=== PATIENT | female | born 1970 | race African-American/Black ===

== ENCOUNTER 2016-03-14 04:23 | Inpatient (IN) | payer BC, OTHER ==
[~2016-03-14] VITALS: Ht 167.6 cm; Wt 96.2 kg
[~2016-03-14 04:23] MED LIST: ATARAX,VISTARIL25 MG PO; CALCIUM 250+D1 EACH PO; COMBIVENT IH; DAILY VALUE1 EACH PO; FLUOXETINE HCL20 MG PO; FLUOXETINE HCL40 MG PO; GLUCOSAMINE1000 MG PO; HYDROCODON-ACE1 EAC5 PO; K-DUR20 MEQ PO; LISINOPRIL PO; LISINOPRIL5 MG PO; LUNESTA3 MG PO; MOTRIN600 MG PO; NEBS; OMEGA 3-6-91200 MG PO; PROBIOTIC1 EAC1 PO; SOMA350 MG PO; TRAMADOL HCL50 MG PO; ULTRAM50 MG PO; XANAX1 MG PO; [UNRECOGNIZED DRUG - REMARK] PO
[2016-03-14 05:43] LABS: CHLORIDE 109 mEq/L (99-109)
[2016-03-14 05:44] LABS: SODIUM 137 mEq/L (136-147)
[2016-03-14 05:46] LABS: GLUCOSE 151 mg/dL (70-99)
[2016-03-14 05:47] LABS: ANION GAP 11 MEQ/L (2-14)
[2016-03-14 05:48] LABS: TOTAL BILIRUBIN 0.2 mg/dL (0.0-1.0)
[2016-03-14 05:49] LABS: ALKALINE PHOSPHATASE 127 IU/L (3-129); SERUM ETHYL ALCOHOL < 10 mg/dL
[2016-03-14 05:50] LABS: GFR ESTIMATE (CALCULATED) > 59 mL/min/
[2016-03-14 05:51] LABS: UREA NITROGEN (BUN) 9 mg/dL (9-23)
[2016-03-14 05:55] LABS: HEMATOCRIT 30.2 % (36.0-46.0); MCHC 32.8 G/DL (30.0-36.0); MCV 82.5 FL (83-99); MEAN PLAT.VOLUME 9.1 uM^3 (9.5-12.4); PLATELET COUNT 331 K/uL (156-360); RBC DIS.WIDTH-CV 19.1 % (11.8-14.6); RBC DIS.WIDTH-SD 52.1 % (39-53); RED BLOOD COUNT 3.66 M/uL (3.80-5.20); TROP-I INTERPRETATION NEGATIVE; TROPONIN-I < 0.01 ng/mL (0.0-0.30)
[2016-03-14 05:56] LABS: EOSINOPHIL (%) 2.2 % (0-5); EOSINOPHIL COUNT 0.1 K/uL (0-0.3); LYMPHOCYTE COUNT 2.5 K/uL (1.0-2.8); MONOCYTE (%) 10.9 % (3-12); MONOCYTE COUNT 0.6 K/uL (0-0.8); NEUTROPHIL (%) 36.9 % (45-76); NEUTROPHIL COUNT 1.9 K/uL (1.8-6.4)
[2016-03-14 07:48] LABS: ADD MIUA? NO; BILIRUBIN NEGATIVE; BLOOD NEGATIVE; COLOR YELLOW ((YELLOW)); GLUCOSE (STRIP) NEGATIVE; KETONES NEGATIVE; LEUKOCYTES NEGATIVE; NITRITE NEGATIVE; PROTEIN (STRIP) NEGATIVE; SPECIFIC GRAVITY 1.013 (1.000-1.030); UCUL ADDED? NO; UROBILINOGEN 0.2 MG/DL (0.2-1.0)
[2016-03-14] MEDS ORDERED: LISINOPRIL40 MG PO (07:56)
[2016-03-14 07:57] LABS: ADD MEDTOX COMMENT Y; AMPHETAMINE NEGATIVE (500 ng/mL); BARBITURATES NEGATIVE (200 ng/mL); BENZODIAZEPINES PRESUMPTIVE POSITIVE (150 ng/mL); COCAINE NEGATIVE (150 ng/mL); INTERNAL CONTROLS VALID? YES; METHADONE NEGATIVE (200 ng/mL); METHAMPHETAMINE NEGATIVE (500 ng/mL); OPIATES (MORPHINE) NEGATIVE (100 ng/mL); OXYCODONE NEGATIVE (100 ng/mL); PHENCYCLIDINE NEGATIVE (25 ng/mL); PROPOXYPHENE NEGATIVE (300 ng/mL); THC CANNABINOIDS NEGATIVE (50 ng/mL); TRICYCLIC ANTIDEPRESSANTS NEGATIVE (300 ng/mL)
[2016-03-14] MEDS ORDERED: NEXIUM40 MG PO (07:57)
[2016-03-14] MEDS ORDERED: OMEGA 3-6-9 11200 MG PO (07:58)
[2016-03-14] MEDS ORDERED: SINGULAIR10 MG PO (07:59)
[2016-03-14] MEDS ORDERED: PROZAC20 MG PO (08:00)
[2016-03-14] MEDS ORDERED: NORVASC5 MG PO (08:01)
[2016-03-14] MEDS ORDERED: ENDOCET 5-3251 EACH PO (08:01)
[2016-03-14] MEDS ORDERED: CRESTOR10 MG PO (08:02)
[2016-03-14] MEDS ORDERED: AMBIEN10 MG PO (08:03)
[2016-03-14] MEDS ORDERED: BUPROPION HCL150 M2 PO (08:04)
[2016-03-14] MEDS ORDERED: OXAYDO5 MG PO (08:05)
[2016-03-14] MEDS ORDERED: EFFEXOR75 MG PO (08:05)
[2016-03-14 08:41] LABS: BENZODIAZEPINES, URINE SCREEN POSITIVE (200 ng/mL)
[2016-03-14 16:30] VITALS: BP 133/79
[2016-03-14 18:45] LABS: ANION GAP 8 MEQ/L (2-14); CHLORIDE 111 MEQ/L (99-109); CREATINE KINASE 156 IU/L (1-294); GFR ESTIMATE (CALCULATED) > 59 mL/min/; MAGNESIUM 1.8 mg/dl (1.3-2.7); SAMPLE HEMOLYSIS CHECK 0; SAMPLE ICTERIC CHECK 0; SAMPLE LIPEMIA CHECK 0; SODIUM 140 MEQ/L (136-147); UREA NITROGEN (BUN) 7 mg/dL (9-23)
[2016-03-14 18:50] LABS: GLUCOSE 107 mg/dL (70-99); POTASSIUM 4.5 MEQ/L (3.7-5.4)
[2016-03-14 20:00] VITALS: BP 137/75
[2016-03-15] VITALS: BP 147/40
[2016-03-15 06:34] VITALS: BP 129/75
[2016-03-15 07:23] LABS: EOSINOPHIL (%) 3.5 % (0-5); EOSINOPHIL COUNT 0.2 K/uL (0-0.3); HEMATOCRIT 34.2 % (36.0-46.0); IMMATURE GRANULOCYTE (%) 0.2 % (0.0-0.7); LYMPHOCYTE COUNT 2.1 K/uL (1.0-2.8); MCH 27.2 PG (29.0-34.0); MCHC 31.3 G/DL (30.0-36.0); MCV 86.8 FL (83-99); MEAN PLAT.VOLUME 9.3 uM^3 (9.5-12.4); MONOCYTE (%) 10.4 % (3-12); MONOCYTE COUNT 0.5 K/uL (0-0.8); NEUTROPHIL (%) 44.8 % (45-76); NEUTROPHIL COUNT 2.3 K/uL (1.8-6.4); PLATELET COUNT 334 K/uL (156-360); RBC DIS.WIDTH-CV 19.7 % (11.8-14.6); RBC DIS.WIDTH-SD 60.6 % (39-53); RED BLOOD COUNT 3.94 M/uL (3.80-5.20); WHITE BLOOD COUNT 5.1 K/uL (4.1-10.2)
[2016-03-15 08:48] VITALS: BP 147/86
[2016-03-15 09:07] LABS: ALKALINE PHOSPHATASE 122 IU/L (3-129); ANION GAP 7 MEQ/L (2-14); CHLORIDE 109 MEQ/L (99-109); GFR ESTIMATE (CALCULATED) > 59 mL/min/; GLUCOSE 99 mg/dL (70-99); POTASSIUM 4.4 MEQ/L (3.7-5.4); SAMPLE HEMOLYSIS CHECK 0; SAMPLE ICTERIC CHECK 0; SAMPLE LIPEMIA CHECK 0; SODIUM 139 MEQ/L (136-147); TOTAL BILIRUBIN 0.3 MG/DL (0.0-1.0); UREA NITROGEN (BUN) 7 mg/dL (9-23)
[2016-03-15] MEDS ORDERED: FIORICET WI1 CAPSULE PO (10:57)
[2016-03-15] MEDS ORDERED: ZOFRAN4 MG PO (10:57)
== END 2016-03-15 12:15 | disposition home or self-care (01) | DRG 103 ==
LOC: EME 04:23 → 3EAST 06:23 → EDOF 06:23 → 3EAST 15:51
PROVIDERS: Emergency Medicine; Hospitalist; Physician Assistant
DX: G43.909 Migraine, unspecified, not intractable, without status migrainosus (principal); E87.6 Hypokalemia; G89.29 Other chronic pain; M54.9 Dorsalgia, unspecified; I11.0 Hypertensive heart disease with heart failure; I50.9 Heart failure, unspecified; K21.9 Gastro-esophageal reflux disease without esophagitis; J45.909 Unspecified asthma, uncomplicated; E78.5 Hyperlipidemia, unspecified
CPT/HCPCS: 70450; 70551; 80048 91; 80053; 81003; 82140; 82550 91; 83605; 83735; 84484; 84999; 85025; 93005; 99281; 99285; G0480; J1650; J1885; J2060; J2250; J2405; J3480; J7030; J7120

== ENCOUNTER → 2016-08-20 | Outpatient (CLI) | payer BC, MEDICARE ==
[~2016-08-20] MED LIST changes: +AMBIEN10 MG PO; +BUPROPION HCL150 M2 PO; +CRESTOR10 MG PO; +DUONEB 2.5-0.5 M3 ML AEROSOL; +EFFEXOR75 MG PO; +ENDOCET 5-3251 EACH PO; +FIORICET WI1 CAPSULE PO; +LISINOPRIL40 MG PO; +NEXIUM40 MG PO; +NORVASC5 MG PO; +OMEGA 3-6-9 11200 MG PO; +OXAYDO5 MG PO; +OXYCODONE HCL10 MG PO; +PROZAC20 MG PO; +SINGULAIR10 MG PO; +VENTOLIN HFA18 GM IH; +ZOFRAN4 MG PO
== END | disposition home or self-care (01) ==
LOC: CDC 13:58
DX: M47.12 Other spondylosis with myelopathy, cervical region (principal); M48.02 Spinal stenosis, cervical region; G95.89 Other specified diseases of spinal cord; R94.31 Abnormal electrocardiogram [ECG] [EKG]
CPT/HCPCS: 93000

== ENCOUNTER 2016-08-23 12:54 | Day surgery (SDC) | payer BC, OTHER ==
[~2016-08-23] VITALS: Ht 170.2 cm; Wt 83.1 kg
[2016-08-23 20:57] VITALS: BP 141/73
[2016-08-23 22:54] VITALS: BP 136/81
[2016-08-24 03:49] VITALS: BP 106/57
[2016-08-24 07:32] VITALS: BP 129/70
[2016-08-24] MEDS ORDERED: OXYCODONE HCL10 MG PO (11:52)
[2016-08-24] MEDS ORDERED: BACTRIM,SEPT1 TABLET PO (11:52)
[2016-08-24 12:16] VITALS: BP 130/77
== END 2016-08-24 15:15 | disposition home or self-care (01) ==
LOC: SDC → 3EAST 17:37 → 2SOUTH 17:37 → 3EAST 20:22
DX: M47.12 Other spondylosis with myelopathy, cervical region (principal); M50.021 Cervical disc disorder at C4-C5 level with myelopathy; M48.02 Spinal stenosis, cervical region; G95.89 Other specified diseases of spinal cord; I10 Essential (primary) hypertension; J45.909 Unspecified asthma, uncomplicated; Z83.3 Family history of diabetes mellitus; Z82.49 Family history of ischemic heart disease and other diseases of the circulatory system
CPT/HCPCS: 72040; 76000; 94010; 95938; 99202; C1713; G0378; J0330; J0690; J1170; J2250; J2405; J3010; J3480

== ENCOUNTER 2016-08-24 19:55 | Emergency (ER) | payer BC, MEDICARE, OTHER ==
[~2016-08-24] VITALS: Ht 167.6 cm; Wt 94.9 kg
[~2016-08-24 19:55] MED LIST changes: +BACTRIM,SEPT1 TABLET PO
[2016-08-24 22:58] VITALS: BP 127/80
== END 2016-08-24 23:02 | disposition home or self-care (01) ==
LOC: EXP 19:55 → EME 19:55 → EXP 23:02
PROC: 0HQ0XZZ Repair Scalp Skin, External Approach (ICD-10-PCS; principal; 2016-08-24)
DX: G89.18 Other acute postprocedural pain (principal); Z98.1 Arthrodesis status; M54.2 Cervicalgia; S01.01XA Laceration without foreign body of scalp, initial encounter; W19.XXXA Unspecified fall, initial encounter; Y93.89 Activity, other specified; Y92.002 Bathroom of unspecified non-institutional (private) residence as the place of occurrence of the external cause; Y99.8 Other external cause status; R55 Syncope and collapse; J45.909 Unspecified asthma, uncomplicated; E78.5 Hyperlipidemia, unspecified; K21.9 Gastro-esophageal reflux disease without esophagitis; Z88.8 Allergy status to other drugs, medicaments and biological substances
CPT/HCPCS: 72125; 93005; 99281; 99284

== ENCOUNTER → 2017-02-12 | Outpatient (CLI) | payer BC, MEDICARE | END | disposition home or self-care (01) | LOC: CDC 14:32 | DX: Z01.810 Encounter for preprocedural cardiovascular examination (principal); K64.8 Other hemorrhoids; R94.31 Abnormal electrocardiogram [ECG] [EKG] | CPT/HCPCS: 93000 ==

== ENCOUNTER 2017-02-22 13:21 | Day surgery (SDC) | payer BC, OTHER ==
[~2017-02-22] VITALS: Ht 167.6 cm; Wt 79.4 kg
[2017-02-22 13:50] VITALS: BP 150/68
[2017-02-22] MEDS ORDERED: ROXICODONE5 MG PO (16:04)
[2017-02-22 16:45] VITALS: BP 183/99
[2017-02-22 17:31] VITALS: BP 155/80
== END 2017-02-22 17:37 | disposition home or self-care (01) ==
LOC: SDC 13:21
PROC: 0D7Q7ZZ Dilation of Anus, Via Natural or Artificial Opening (ICD-10-PCS; principal; 2017-02-22)
PROC: 06LY0CC Occlusion of Hemorrhoidal Plexus with Extraluminal Device, Open Approach (ICD-10-PCS; principal; 2017-02-22)
DX: K64.8 Other hemorrhoids (principal); J45.909 Unspecified asthma, uncomplicated; F41.8 Other specified anxiety disorders; I11.0 Hypertensive heart disease with heart failure; I50.9 Heart failure, unspecified; E78.4 Other hyperlipidemia
CPT/HCPCS: J0330; J0690; J1100; J1170; J2250; J2405; J3010; S0020

== ENCOUNTER 2017-03-25 16:57 | Inpatient (IN) | payer BC, OTHER ==
[~2017-03-25] VITALS: Ht 167.6 cm; Wt 84.3 kg
[~2017-03-25 16:57] MED LIST changes: +ROXICODONE5 MG PO
[2017-03-25 18:02] LABS: HEMATOCRIT 45.8 % (36.0-46.0); HEMOGLOBIN 12.7 G/DL (11.9-15.5); MCH 28.9 PG (29.0-34.0); MCHC 27.7 G/DL (30.0-36.0); MCV 104.3 FL (83-99); PLATELET COUNT 399 K/uL (156-360); RBC DIS.WIDTH-CV 19.9 % (11.8-14.6); RBC DIS.WIDTH-SD 77.4 % (39-53); RED BLOOD COUNT 4.39 M/uL (3.80-5.20); WHITE BLOOD COUNT 20.3 K/uL (4.1-10.2)
[2017-03-25 18:04] LABS: CARBOXY HGB 0 % (0-5); METHEMOGLOBIN 0 % (0-1.5); PO2 362 mm Hg (80-100)
[2017-03-25 18:06] LABS: COMMENTS - BLOOD GASES A+C+; DEVICE VENT; FI02 100 %; MECHANICAL RATE 17 resp/min; MODE ACVC; PEEP 7 CM/H20; SITE RR; TIDAL VOLUME 350 ML; TOTAL RESP RATE 17 resp/min
[2017-03-25 18:07] LABS: pH < 6.92 (7.35-7.45)
[2017-03-25 18:08] LABS: ALBUMIN 3.7 g/dL (3.2-4.8); CHLORIDE 102 mEq/L (99-109); POTASSIUM 4.2 mEq/L (3.7-5.4); SODIUM 135 mEq/L (136-147)
[2017-03-25 18:11] LABS: GLUCOSE 180 mg/dL (70-99); TOTAL PROTEIN 6.8 g/dL (6.4-8.3)
[2017-03-25 18:12] LABS: TOTAL BILIRUBIN 0.3 mg/dL (0.0-1.0)
[2017-03-25 18:13] LABS: SERUM ETHYL ALCOHOL 132 mg/dL
[2017-03-25 18:14] LABS: CREATININE 2.1 mg/dL (0.6-1.3); GFR ESTIMATE (CALCULATED) 32 mL/min/
[2017-03-25 18:15] LABS: ALKALINE PHOSPHATASE 165 IU/L (3-129)
[2017-03-25 18:16] LABS: AST (GOT) 463 IU/L (2-34); UREA NITROGEN (BUN) 20 mg/dL (9-23)
[2017-03-25 18:18] LABS: ACETAMINOPHEN (TYLENOL) < 10 mcg/mL (10-30); ALT (GPT) 92 IU/L (3-49); CREATINE KINASE 255 IU/L (1-294); SALICYLATE 13.4 MG/DL (15-30); TOTAL CK 255 IU/L (1-294); TROP-I INTERPRETATION NEGATIVE; TROPONIN-I 0.06 ng/mL (0.0-0.30)
[2017-03-25 18:24] LABS: CK-MB 10.3 ng/mL (0.0-4.9)
[2017-03-25 18:55] LABS: ABS NEUTROPHIL COUNT 10.4; ANISOCYTOSIS 1+; BAND NEUTROPHILS 4.3 % (0-8.0); EOSINOPHIL ABS CT 0.3; EOSINOPHILS 1.7 % (0-5.0); HYPOCHROMASIA 1+; LYMPHOCYTES 38.5 % (15.0-45.0); MACROCYTES 1+; MICROCYTOSIS 1+; MONOCYTES 8.5 % (0-9.0); NUCLEATED RBC'S 0.9; OVALOCYTES 1+; PLAT.SUFFICIENCY ADEQUATE; POLYCHROMASIA 1+
[2017-03-25 19:06] LABS: CARBOXY HGB 0 % (0-5); METHEMOGLOBIN 0.2 % (0-1.5); PCO2 60 mm Hg (35-45); PO2 296 mm Hg (80-100)
[2017-03-25 19:08] LABS: COMMENTS - BLOOD GASES A+C+; DEVICE VENT; FI02 70 %; MECHANICAL RATE 20 resp/min; MODE ACVC; PEEP 7 CM/H20; SITE RR; TIDAL VOLUME 420 ML; TOTAL RESP RATE 20 resp/min; pH < 6.92 (7.35-7.45)
[2017-03-25 19:38] LABS: APPEARANCE CLOUDY ((CLEAR)); BILIRUBIN NEGATIVE; BLOOD MODERATE; COLOR YELLOW ((YELLOW)); GLUCOSE (STRIP) NEGATIVE; KETONES 5; LEUKOCYTES NEGATIVE; NITRITE NEGATIVE; PROTEIN (STRIP) 100; SPECIFIC GRAVITY 1.012 (1.000-1.030); UROBILINOGEN 0.2 MG/DL (0.2-1.0)
[2017-03-25 19:42] LABS: AMPHETAMINE NEGATIVE (500 ng/mL); BENZODIAZEPINES NEGATIVE (150 ng/mL); COCAINE NEGATIVE (150 ng/mL); METHADONE NEGATIVE (200 ng/mL); METHAMPHETAMINE NEGATIVE (500 ng/mL); OPIATES (MORPHINE) NEGATIVE (100 ng/mL); PHENCYCLIDINE NEGATIVE (25 ng/mL); THC CANNABINOIDS NEGATIVE (50 ng/mL); TRICYCLIC ANTIDEPRESSANTS NEGATIVE (300 ng/mL)
[2017-03-25 19:43] LABS: BARBITURATES NEGATIVE (200 ng/mL); BUPRENORPHINE NEGATIVE (10 ng/mL); OXYCODONE NEGATIVE (100 ng/mL); PROPOXYPHENE NEGATIVE (300 ng/mL)
[2017-03-25 19:50] LABS: BACTERIA RARE /HPF; CALCIUM OXALATE CRYSTALS 3+ /HPF; EPITHELIAL CELLS 1+ /HPF; HYALINE CASTS 15-20 /LPF; MUCUS TRACE /LPF; RED BLOOD CELLS NONE SEEN /HPF (0-5); UCUL ADDED? YES
[2017-03-25 21:34] LABS: LIPASE > 1055 U/L (1.0-51.0)
[2017-03-25 21:45] VITALS: BP 134/76
[2017-03-25 21:58] LABS: CARBOXY HGB 0 % (0-5)
[2017-03-25 21:59] LABS: DEVICE VENT; FI02 60 %; MECHANICAL RATE 20 resp/min; MODE ACVC; PCO2 52 mm Hg (35-45); PEEP 7 CM/H20; PO2 82 mm Hg (80-100); SITE LA; TIDAL VOLUME 420 ML; TOTAL RESP RATE 20 resp/min; pH < 6.92 (7.35-7.45)
[2017-03-25 22:00] VITALS: BP 144/84
[2017-03-25 22:00] LABS: COMMENTS - BLOOD GASES C+
[2017-03-25 22:15] VITALS: BP 121/63
[2017-03-25 22:49] VITALS: BP 144/54
[2017-03-25 23:00] VITALS: BP 129/74
[2017-03-25 23:16] LABS: CARBOXY HGB 0 % (0-5); COMMENTS - BLOOD GASES C+A+; DEVICE VENTILATOR; FI02 50 %; MECHANICAL RATE 30 resp/min; METHEMOGLOBIN 0.8 % (0-1.5); MODE A/C; PCO2 33 mm Hg (35-45); PO2 98 mm Hg (80-100); SITE RR; TOTAL RESP RATE 30 resp/min
[2017-03-25 23:17] LABS: PEEP 7 CM/H20; TIDAL VOLUME 420 ML; pH < 6.92 (7.35-7.45)
[2017-03-25 23:53] LABS: CHLORIDE 107 mEq/L (99-109); MAGNESIUM 2.5 mg/dL (1.3-2.7); POTASSIUM 4.5 mEq/L (3.7-5.4); SODIUM 141 mEq/L (136-147)
[2017-03-25 23:54] LABS: BASOPHIL (%) 0.3 % (0-1); BASOPHIL COUNT 0.1 K/uL (0-0.1); EOSINOPHIL (%) 0.2 % (0-5); HEMOGLOBIN 12.1 G/DL (11.9-15.5); IMMATURE GRANULOCYTE (%) 2.8 % (0.0-0.7); LYMPHOCYTE (%) 25.8 % (15-42); LYMPHOCYTE COUNT 6.8 K/uL (1.0-2.8); MCH 28.4 PG (29.0-34.0); MCHC 29.5 G/DL (30.0-36.0); MONOCYTE COUNT 0.8 K/uL (0-0.8); NEUTROPHIL (%) 67.9 % (45-76); NEUTROPHIL COUNT 17.9 K/uL (1.8-6.4); NRBC (%) 0.2 /100 WBC (0-0); PLATELET COUNT 368 K/uL (156-360); RBC DIS.WIDTH-CV 19.5 % (11.8-14.6); RBC DIS.WIDTH-SD 69.5 % (39-53); RED BLOOD COUNT 4.26 M/uL (3.80-5.20); WHITE BLOOD COUNT 26.3 K/uL (4.1-10.2)
[2017-03-25 23:55] LABS: GLUCOSE 145 mg/dL (70-99); MCV 96.2 FL (83-99)
[2017-03-25 23:58] LABS: TOTAL BILIRUBIN 0.4 mg/dL (0.0-1.0); TOTAL PROTEIN 5.4 g/dL (6.4-8.3)
[2017-03-25 23:59] LABS: ALKALINE PHOSPHATASE 147 IU/L (3-129); GFR ESTIMATE (CALCULATED) 34 mL/min/; PHOSPHORUS 6.6 mg/dL (2.5-4.9)
[2017-03-26] VITALS (12 sets, daily range): BP systolic 75–129; BP diastolic 45–88
[2017-03-26] LABS: AST (GOT) 578 IU/L (2-34); UREA NITROGEN (BUN) 19 mg/dL (9-23)
[2017-03-26 00:02] LABS: ALT (GPT) 88 IU/L (3-49)
[2017-03-26 00:05] LABS: TROP-I INTERPRETATION NEGATIVE; TROPONIN-I 0.27 ng/mL (0.0-0.30)
[2017-03-26 01:06] LABS: BASE EXCESS -21.4 mEq/L (-3 to +3); BICARBONATE 8.6 mEq/L (22-26); CARBOXY HGB 0 % (0-5); METHEMOGLOBIN 0.9 % (0-1.5); PCO2 34 mm Hg (35-45)
[2017-03-26 01:07] LABS: COMMENTS - BLOOD GASES C+A+; DEVICE VENTILATOR; FI02 50 %; MECHANICAL RATE 30 resp/min; MODE AC; PEEP 7 CM/H20; PO2 66 mm Hg (80-100); SITE RR; TIDAL VOLUME 420 ML; TOTAL RESP RATE 30 resp/min; pH 7.01 (7.35-7.45)
[2017-03-26 02:10] LABS: LIPASE 1466 U/L (1.0-51.0)
[2017-03-26 04:28] LABS: HEMATOCRIT 29.9 % (36.0-46.0); MCHC 33.8 G/DL (30.0-36.0); NRBC (%) 1.7 /100 WBC (0-0); PLATELET COUNT 269 K/uL (156-360); RBC DIS.WIDTH-CV 18.3 % (11.8-14.6); RBC DIS.WIDTH-SD 57.2 % (39-53); RED BLOOD COUNT 3.48 M/uL (3.80-5.20); WHITE BLOOD COUNT 9.2 K/uL (4.1-10.2)
[2017-03-26 04:30] LABS: HEMOGLOBIN 10.1 G/DL (11.9-15.5); MCV 85.9 FL (83-99)
[2017-03-26 04:32] LABS: INTER. NORMALIZED RATIO 1.3
[2017-03-26 04:33] LABS: ALBUMIN 2.4 g/dL (3.2-4.8)
[2017-03-26 04:34] LABS: CHLORIDE 108 mEq/L (99-109); POTASSIUM 4.1 mEq/L (3.7-5.4); SODIUM 146 mEq/L (136-147)
[2017-03-26 04:36] LABS: GLUCOSE 155 mg/dL (70-99)
[2017-03-26 04:40] LABS: CREATININE 2.1 mg/dL (0.6-1.3); GFR ESTIMATE (CALCULATED) 32 mL/min/
[2017-03-26 04:41] LABS: AST (GOT) 406 IU/L (2-34); UREA NITROGEN (BUN) 22 mg/dL (9-23)
[2017-03-26 04:43] LABS: ALT (GPT) 62 IU/L (3-49)
[2017-03-26 04:44] LABS: ALKALINE PHOSPHATASE 105 IU/L (3-129); TOTAL BILIRUBIN 0.2 mg/dL (0.0-1.0)
[2017-03-26 04:45] LABS: BASE EXCESS -4.9 mEq/L (-3 to +3); CARBOXY HGB 0 % (0-5); METHEMOGLOBIN 0.5 % (0-1.5); PCO2 33 mm Hg (35-45)
[2017-03-26 04:47] LABS: BICARBONATE 19.5 mEq/L (22-26); COMMENTS - BLOOD GASES C+A+; DEVICE VENTILATOR; FI02 60 %; MECHANICAL RATE 30 resp/min; MODE AC; PEEP 7 CM/H20; PO2 49 mm Hg (80-100); TIDAL VOLUME 420 ML; TOTAL RESP RATE 36 resp/min; pH 7.38 (7.35-7.45)
[2017-03-26 20:54] LABS: BASE EXCESS -1.3 mEq/L (-3 to +3); BICARBONATE 21.8 mEq/L (22-26); CARBOXY HGB 0 % (0-5); METHEMOGLOBIN 0.7 % (0-1.5); PCO2 30 mm Hg (35-45); pH 7.47 (7.35-7.45)
[2017-03-26 20:55] LABS: COMMENTS - BLOOD GASES C+A+; DEVICE VENTILATOR; FI02 50 %; MECHANICAL RATE 28 resp/min; MODE A/C; PEEP 7 CM/H20; PO2 116 mm Hg (80-100); TIDAL VOLUME 450 ML; TOTAL RESP RATE 28 resp/min
[2017-03-26 20:56] LABS: HEMATOCRIT 27.7 % (36.0-46.0); HEMOGLOBIN 9.7 G/DL (11.9-15.5); MCH 29.2 PG (29.0-34.0); MCV 83.4 FL (83-99); NRBC (%) 1.1 /100 WBC (0-0); PLATELET COUNT 205 K/uL (156-360); RBC DIS.WIDTH-CV 18.6 % (11.8-14.6); RBC DIS.WIDTH-SD 56.5 % (39-53); RED BLOOD COUNT 3.32 M/uL (3.80-5.20); WHITE BLOOD COUNT 12.2 K/uL (4.1-10.2)
[2017-03-26 21:13] LABS: INTER. NORMALIZED RATIO 1.4
[2017-03-26 21:16] LABS: PTT 36.9 SEC (25-37)
[2017-03-26 21:34] LABS: ALBUMIN 2.4 G/DL (3.2-4.8); CHLORIDE 111 MEQ/L (99-109); MAGNESIUM 1.3 mg/dl (1.3-2.7); POTASSIUM 3.3 MEQ/L (3.7-5.4); SODIUM 145 MEQ/L (136-147); TOTAL BILIRUBIN 0.3 MG/DL (0.0-1.0)
[2017-03-26 21:36] LABS: ANISOCYTOSIS 2+; BAND NEUTROPHILS 18.1 % (0-8.0); EOSINOPHIL ABS CT 0; HYPOCHROMASIA 1+; MACROCYTES 2+; METAMYELOCYTES 39.1 %; MYELOCYTES 7.6 %; PLAT.SUFFICIENCY ADEQUATE; POIKILOCYTOSIS 2+; SEG.NEUTROPHILS 31.4 % (46.0-76.0); TARGET CELLS 1+
[2017-03-26 21:39] LABS: ALKALINE PHOSPHATASE 70 IU/L (3-129); ALT (GPT) 41 IU/L (3-49); AST (GOT) 148 IU/L (2-34); CREATININE 3.2 MG/DL (0.6-1.3); GFR ESTIMATE (CALCULATED) 20 mL/min/; GLUCOSE 193 mg/dL (70-99); PHOSPHORUS 1.1 mg/dL (2.5-4.9); TOTAL PROTEIN 4.3 G/DL (6.4-8.3); UREA NITROGEN (BUN) 30 mg/dL (9-23)
[2017-03-26 21:48] LABS: TROP-I INTERPRETATION POSITIVE; TROPONIN-I 2.34 ng/mL (0.0-0.30)
[2017-03-26 21:54] LABS: CREATINE KINASE 763 IU/L (1-294)
[2017-03-26 22:13] LABS: LYMPHOCYTES 3.8 % (15.0-45.0)
[2017-03-26 23:07] LABS: LIPASE 1057 U/L (1.0-51.0)
[2017-03-26 23:09] LABS: AMYLASE 929 IU/L (1-118)
[2017-03-27 03:00] VITALS: BP 92/56
[2017-03-27 05:36] LABS: HEMATOCRIT 26.9 % (36.0-46.0); HEMOGLOBIN 9.4 G/DL (11.9-15.5); MCH 29.2 PG (29.0-34.0); MCHC 34.9 G/DL (30.0-36.0); MCV 83.5 FL (83-99); NRBC (%) 0.3 /100 WBC (0-0); PLATELET COUNT 202 K/uL (156-360); RBC DIS.WIDTH-CV 18.6 % (11.8-14.6); RBC DIS.WIDTH-SD 57.2 % (39-53); RED BLOOD COUNT 3.22 M/uL (3.80-5.20); WHITE BLOOD COUNT 15.9 K/uL (4.1-10.2)
[2017-03-27 05:38] LABS: INTER. NORMALIZED RATIO 1.3
[2017-03-27 05:41] LABS: PTT 38.5 SEC (25-37)
[2017-03-27 06:12] LABS: ANISOCYTOSIS 1+; BAND NEUTROPHILS 10.3 % (0-8.0); BURR CELLS 1+; EOSINOPHIL ABS CT 0.1; EOSINOPHILS 0.9 % (0-5.0); HELMET CELLS 1+; HYPOCHROMASIA 2+; LYMPHOCYTES 4.7 % (15.0-45.0); MACROCYTES 2+; METAMYELOCYTES 20.6 %; MICROCYTOSIS 1+; MONOCYTES 8.4 % (0-9.0); MYELOCYTES 2.8 %; NUCLEATED RBC'S 1.9; PLAT.SUFFICIENCY ADEQUATE; POIKILOCYTOSIS 1+; POLYCHROMASIA 1+; TARGET CELLS 2+; TEAR DROP CELLS 2+
[2017-03-27 06:15] LABS: SEG.NEUTROPHILS 52.3 % (46.0-76.0)
[2017-03-27 07:36] LABS: ALBUMIN 2.2 G/DL (3.2-4.8); ALKALINE PHOSPHATASE 74 IU/L (3-129); ALT (GPT) 37 IU/L (3-49); AST (GOT) 113 IU/L (2-34); CHLORIDE 115 MEQ/L (99-109); CREATININE 3.6 MG/DL (0.6-1.3); DIRECT BILIRUBIN 0.1 mg/dL (0.0-0.3); GFR ESTIMATE (CALCULATED) 17 mL/min/; LIPASE 750 U/L (1.0-51.0); SODIUM 150 MEQ/L (136-147); TOTAL BILIRUBIN 0.3 MG/DL (0.0-1.0); UREA NITROGEN (BUN) 34 mg/dL (9-23)
[2017-03-27 07:37] LABS: GLUCOSE 115 mg/dL (70-99)
[2017-03-27 07:38] LABS: AMYLASE 678 IU/L (1-118)
[2017-03-27 12:00] VITALS: BP 96/60
[2017-03-27 13:28] LABS: TROPONIN-I 2.02 ng/mL (0.0-0.30)
[2017-03-27 13:29] LABS: TROP-I INTERPRETATION POSITIVE
[2017-03-27 15:54] LABS: UR CREATININE CONCENTRATION 146.4 MG/DL
[2017-03-27 21:00] VITALS: BP 119/79
[2017-03-28] VITALS (12 sets, daily range): BP systolic 131–154; BP diastolic 18–188
[2017-03-28 05:53] LABS: INTER. NORMALIZED RATIO 1.1
[2017-03-28 05:56] LABS: PTT 33.9 SEC (25-37)
[2017-03-28 06:31] LABS: ALBUMIN 2.3 G/DL (3.2-4.8); ALKALINE PHOSPHATASE 78 IU/L (3-129); ALT (GPT) 32 IU/L (3-49); AST (GOT) 66 IU/L (2-34); CK-MB 7.5 ng/mL (0.0-4.9); DIRECT BILIRUBIN 0.1 mg/dL (0.0-0.3); HEMATOCRIT 24.7 % (36.0-46.0); HEMOGLOBIN 8.4 G/DL (11.9-15.5); LIPASE 387 U/L (1.0-51.0); MCH 28.3 PG (29.0-34.0); MCV 83.2 FL (83-99); NRBC (%) 0.2 /100 WBC (0-0); RBC DIS.WIDTH-CV 19.6 % (11.8-14.6); RBC DIS.WIDTH-SD 58.7 % (39-53); RED BLOOD COUNT 2.97 M/uL (3.80-5.20); TOTAL BILIRUBIN 0.3 MG/DL (0.0-1.0); TROP-I INTERPRETATION POSITIVE; TROPONIN-I 1.01 ng/mL (0.0-0.30); WHITE BLOOD COUNT 13.6 K/uL (4.1-10.2)
[2017-03-28 06:38] LABS: AMYLASE 347 IU/L (1-118); TOTAL PROTEIN 4.7 G/DL (6.4-8.3)
[2017-03-28 07:28] LABS: ABS NEUTROPHIL COUNT 11.2; ANISOCYTOSIS 1+; BAND NEUTROPHILS 10.4 % (0-8.0); EOSINOPHIL ABS CT 0; MACROCYTES 1+; MONOCYTES 4.4 % (0-9.0); PLAT.SUFFICIENCY ADEQUATE; SEG.NEUTROPHILS 72.2 % (46.0-76.0); SMUDGE CELLS 4.3
[2017-03-28 08:02] LABS: ALBUMIN 2.3 G/DL (3.2-4.8); ALKALINE PHOSPHATASE 75 IU/L (3-129); ALT (GPT) 33 IU/L (3-49); AST (GOT) 71 IU/L (2-34); CHLORIDE 111 MEQ/L (99-109); CKMB RELATIVE INDEX 2.9 (0.0-3.9); CREATINE KINASE 259 IU/L (1-294); POTASSIUM 4.3 MEQ/L (3.7-5.4); SODIUM 143 MEQ/L (136-147); TOTAL BILIRUBIN 0.3 MG/DL (0.0-1.0); TOTAL CK 259 IU/L (1-294); TOTAL PROTEIN 4.5 G/DL (6.4-8.3); UREA NITROGEN (BUN) 38 mg/dL (9-23)
[2017-03-28 08:08] LABS: CREATININE 4.4 MG/DL (0.6-1.3); GFR ESTIMATE (CALCULATED) 14 mL/min/; GLUCOSE 83 mg/dL (70-99); MAGNESIUM 1.8 mg/dl (1.3-2.7); PHOSPHORUS 3.5 mg/dL (2.5-4.9)
[2017-03-28 08:21] LABS: INTACT PARATHYROID HORMONE 360 pg/mL (10-69)
[2017-03-28 08:49] LABS: PLATELET COUNT 119 K/uL (156-360)
[2017-03-29] VITALS (13 sets, daily range): BP systolic 135–158; BP diastolic 96–109
[2017-03-29 06:23] LABS: INTER. NORMALIZED RATIO 1.1
[2017-03-29 06:25] LABS: PTT 29.1 SEC (25-37)
[2017-03-29 06:52] LABS: ALBUMIN 2.3 G/DL (3.2-4.8); ALKALINE PHOSPHATASE 92 IU/L (3-129); ALT (GPT) 29 IU/L (3-49); DIRECT BILIRUBIN 0.1 mg/dL (0.0-0.3); LIPASE 291 U/L (1.0-51.0); TOTAL PROTEIN 4.5 G/DL (6.4-8.3)
[2017-03-29 06:53] LABS: CHLORIDE 110 MEQ/L (99-109); GFR ESTIMATE (CALCULATED) 12 mL/min/; MAGNESIUM 1.8 mg/dl (1.3-2.7); PHOSPHORUS 3.1 mg/dL (2.5-4.9); POTASSIUM 3.8 MEQ/L (3.7-5.4); SODIUM 143 MEQ/L (136-147); UREA NITROGEN (BUN) 40 mg/dL (9-23)
[2017-03-29 06:54] LABS: AMYLASE 165 IU/L (1-118); AST (GOT) 37 IU/L (2-34); GLUCOSE 116 mg/dL (70-99); TOTAL BILIRUBIN 0.6 MG/DL (0.0-1.0)
[2017-03-29 08:51] LABS: HEMATOCRIT 26.6 % (36.0-46.0); HEMOGLOBIN 9.1 G/DL (11.9-15.5); MCH 28.6 PG (29.0-34.0); MCHC 34.2 G/DL (30.0-36.0); MCV 83.6 FL (83-99); NRBC (%) 0.2 /100 WBC (0-0); PLATELET COUNT 105 K/uL (156-360); RBC DIS.WIDTH-CV 19.3 % (11.8-14.6); RBC DIS.WIDTH-SD 58.6 % (39-53); RED BLOOD COUNT 3.18 M/uL (3.80-5.20); WHITE BLOOD COUNT 12.2 K/uL (4.1-10.2)
[2017-03-29 09:28] LABS: ABS NEUTROPHIL COUNT 10.6; BAND NEUTROPHILS 2.6 % (0-8.0); EOSINOPHIL ABS CT 0; LYMPHOCYTES 10.4 % (15.0-45.0); MONOCYTES 2.6 % (0-9.0); NUCLEATED RBC'S 0.9; SEG.NEUTROPHILS 84.4 % (46.0-76.0); SMUDGE CELLS 3.5
[2017-03-29 10:37] LABS: INTER. NORMALIZED RATIO 1.1
[2017-03-29 10:40] LABS: PTT 33.9 SEC (25-37)
[2017-03-29] MEDS ORDERED: OXYCONTIN20 MG PO (13:53)
[2017-03-29] MEDS ORDERED: OXYCODONE HCL10 MG PO (14:00)
[2017-03-30] VITALS (8 sets, daily range): BP systolic 121–172; BP diastolic 78–111
[2017-03-30 07:00] LABS: BASOPHIL (%) 0.4 % (0-1); EOSINOPHIL (%) 3.7 % (0-5); EOSINOPHIL COUNT 0.3 K/uL (0-0.3); HEMATOCRIT 26.2 % (36.0-46.0); HEMOGLOBIN 8.9 G/DL (11.9-15.5); IMMATURE GRANULOCYTE (%) 1.3 % (0.0-0.7); LYMPHOCYTE (%) 17.9 % (15-42); LYMPHOCYTE COUNT 1.4 K/uL (1.0-2.8); MCH 28.8 PG (29.0-34.0); MCV 84.8 FL (83-99); MONOCYTE (%) 16.3 % (3-12); MONOCYTE COUNT 1.2 K/uL (0-0.8); NEUTROPHIL (%) 60.4 % (45-76); NEUTROPHIL COUNT 4.6 K/uL (1.8-6.4); PLATELET COUNT 103 K/uL (156-360); RBC DIS.WIDTH-CV 19.4 % (11.8-14.6); RBC DIS.WIDTH-SD 59.7 % (39-53); RED BLOOD COUNT 3.09 M/uL (3.80-5.20); WHITE BLOOD COUNT 7.6 K/uL (4.1-10.2)
[2017-03-30 08:47] LABS: CHLORIDE 109 MEQ/L (99-109); CREATININE 4.4 MG/DL (0.6-1.3); GFR ESTIMATE (CALCULATED) 14 mL/min/; GLUCOSE 104 mg/dL (70-99); POTASSIUM 3.1 MEQ/L (3.7-5.4); SODIUM 143 MEQ/L (136-147); UREA NITROGEN (BUN) 36 mg/dL (9-23)
[2017-03-31 00:17] VITALS: BP 134/81
[2017-03-31 06:32] LABS: INTER. NORMALIZED RATIO 1.2
[2017-03-31 06:35] LABS: PTT 60.3 SEC (25-37)
[2017-03-31 07:02] LABS: MAGNESIUM 1.5 mg/dl (1.3-2.7)
[2017-03-31 07:34] VITALS: BP 152/94
[2017-03-31 12:54] LABS: APPEARANCE CLEAR ((CLEAR)); BILIRUBIN NEGATIVE; BLOOD SMALL; COLOR STRAW ((YELLOW)); GLUCOSE (STRIP) NEGATIVE; KETONES NEGATIVE; LEUKOCYTES NEGATIVE; NITRITE NEGATIVE; PROTEIN (STRIP) NEGATIVE; SPECIFIC GRAVITY 1.004 (1.000-1.030); UROBILINOGEN 0.2 MG/DL (0.2-1.0)
[2017-03-31 13:04] LABS: BACTERIA NONE SEEN /HPF; EPITHELIAL CELLS RARE /HPF; MUCUS NONE SEEN /LPF; WHITE BLOOD CELLS 0-5 /HPF (0-5)
[2017-03-31 22:49] LABS: TROP-I INTERPRETATION NEGATIVE; TROPONIN-I 0.11 ng/mL (0.0-0.30)
[2017-04-01] VITALS: BP 154/88
[2017-04-01 03:42] LABS: BASOPHIL (%) 0.2 % (0-1); EOSINOPHIL (%) 2.1 % (0-5); EOSINOPHIL COUNT 0.2 K/uL (0-0.3); HEMATOCRIT 24.3 % (36.0-46.0); HEMOGLOBIN 8.1 G/DL (11.9-15.5); IMMATURE GRANULOCYTE (%) 1.9 % (0.0-0.7); LYMPHOCYTE (%) 21.7 % (15-42); LYMPHOCYTE COUNT 2.5 K/uL (1.0-2.8); MCH 28.4 PG (29.0-34.0); MCHC 33.3 G/DL (30.0-36.0); MCV 85.3 FL (83-99); MONOCYTE (%) 19.5 % (3-12); MONOCYTE COUNT 2.3 K/uL (0-0.8); NEUTROPHIL (%) 54.6 % (45-76); NEUTROPHIL COUNT 6.3 K/uL (1.8-6.4); NRBC (%) 0.2 /100 WBC (0-0); RBC DIS.WIDTH-CV 19.3 % (11.8-14.6); RBC DIS.WIDTH-SD 59.4 % (39-53); RED BLOOD COUNT 2.85 M/uL (3.80-5.20); WHITE BLOOD COUNT 11.6 K/uL (4.1-10.2)
[2017-04-01 03:44] LABS: PLATELET COUNT 243 K/uL (156-360)
[2017-04-01 03:49] LABS: INTER. NORMALIZED RATIO 1.4
[2017-04-01 03:51] LABS: PTT 59.1 SEC (25-37)
[2017-04-01 04:04] LABS: TROP-I INTERPRETATION NEGATIVE; TROPONIN-I 0.08 ng/mL (0.0-0.30)
[2017-04-01 04:27] LABS: ALBUMIN 2.4 g/dL (3.2-4.8)
[2017-04-01 04:28] LABS: CHLORIDE 112 mEq/L (99-109); SODIUM 147 mEq/L (136-147)
[2017-04-01 04:30] LABS: GLUCOSE 120 mg/dL (70-99)
[2017-04-01 04:34] LABS: CREATININE 3.1 mg/dL (0.6-1.3); GFR ESTIMATE (CALCULATED) 21 mL/min/; PHOSPHORUS 3.3 mg/dL (2.5-4.9)
[2017-04-01 04:35] LABS: UREA NITROGEN (BUN) 22 mg/dL (9-23)
[2017-04-01 04:36] LABS: URIC ACID 6.9 mg/dL (3.1-9.2)
[2017-04-01 07:48] VITALS: BP 172/99
[2017-04-01 09:50] LABS: TROP-I INTERPRETATION NEGATIVE; TROPONIN-I 0.06 ng/mL (0.0-0.30)
[2017-04-01 16:28] VITALS: BP 152/88
[2017-04-01 20:00] VITALS: BP 158/97
[2017-04-02 00:24] VITALS: BP 156/73
[2017-04-02 07:03] LABS: INTER. NORMALIZED RATIO 1.8
[2017-04-02 07:06] LABS: PTT 53.1 SEC (25-37)
[2017-04-02 07:19] LABS: ALBUMIN 2.6 G/DL (3.2-4.8); CHLORIDE 110 MEQ/L (99-109); PHOSPHORUS 3.5 mg/dL (2.5-4.9); SODIUM 146 MEQ/L (136-147); UREA NITROGEN (BUN) 14 mg/dL (9-23)
[2017-04-02 07:21] LABS: CREATININE 2.4 MG/DL (0.6-1.3); GFR ESTIMATE (CALCULATED) 28 mL/min/; GLUCOSE 73 mg/dL (70-99); POTASSIUM 3.7 MEQ/L (3.7-5.4)
[2017-04-02 07:22] LABS: BASOPHIL (%) 0.3 % (0-1); EOSINOPHIL (%) 1.6 % (0-5); EOSINOPHIL COUNT 0.2 K/uL (0-0.3); HEMATOCRIT 26.7 % (36.0-46.0); HEMOGLOBIN 8.8 G/DL (11.9-15.5); IMMATURE GRANULOCYTE (%) 2.2 % (0.0-0.7); LYMPHOCYTE (%) 25.8 % (15-42); LYMPHOCYTE COUNT 3.1 K/uL (1.0-2.8); MCH 28.2 PG (29.0-34.0); MCV 85.6 FL (83-99); MONOCYTE (%) 13.4 % (3-12); MONOCYTE COUNT 1.6 K/uL (0-0.8); NEUTROPHIL (%) 56.7 % (45-76); NEUTROPHIL COUNT 6.8 K/uL (1.8-6.4); RBC DIS.WIDTH-CV 19.4 % (11.8-14.6); RBC DIS.WIDTH-SD 60.2 % (39-53); RED BLOOD COUNT 3.12 M/uL (3.80-5.20); WHITE BLOOD COUNT 11.9 K/uL (4.1-10.2)
[2017-04-02 08:08] VITALS: BP 157/81
[2017-04-02 08:16] LABS: PLAT.SUFFICIENCY ADEQUATE; PLATELET CLUMPS PRESENT - PLATELET COUNT APPEARS ADQ.; PLATELET COUNT UNABLE TO REPORT K/uL (156-360)
[2017-04-02 16:18] VITALS: BP 130/81
[2017-04-02 16:43] LABS: AMYLASE 108 IU/L (1-118); C-REACTIVE PROTEIN 238.4 MG/L (0-10); LIPASE 150 U/L (1.0-51.0)
[2017-04-03 00:09] VITALS: BP 141/78
[2017-04-03 04:44] LABS: BASOPHIL (%) 0.1 % (0-1); EOSINOPHIL (%) 1.1 % (0-5); EOSINOPHIL COUNT 0.1 K/uL (0-0.3); HEMATOCRIT 24.1 % (36.0-46.0); IMMATURE GRANULOCYTE (%) 1.7 % (0.0-0.7); LYMPHOCYTE (%) 32.5 % (15-42); LYMPHOCYTE COUNT 3.4 K/uL (1.0-2.8); MCH 28.7 PG (29.0-34.0); MCHC 33.2 G/DL (30.0-36.0); MCV 86.4 FL (83-99); MONOCYTE (%) 11.5 % (3-12); MONOCYTE COUNT 1.2 K/uL (0-0.8); NEUTROPHIL (%) 53.1 % (45-76); NEUTROPHIL COUNT 5.6 K/uL (1.8-6.4); PLATELET COUNT 370 K/uL (156-360); RBC DIS.WIDTH-CV 19.3 % (11.8-14.6); RBC DIS.WIDTH-SD 60.6 % (39-53); RED BLOOD COUNT 2.79 M/uL (3.80-5.20); WHITE BLOOD COUNT 10.5 K/uL (4.1-10.2)
[2017-04-03 04:51] LABS: ALBUMIN 2.5 g/dL (3.2-4.8)
[2017-04-03 04:52] LABS: CHLORIDE 113 mEq/L (99-109); POTASSIUM 3.5 mEq/L (3.7-5.4); SODIUM 146 mEq/L (136-147)
[2017-04-03 04:54] LABS: GLUCOSE 83 mg/dL (70-99)
[2017-04-03 04:57] LABS: GFR ESTIMATE (CALCULATED) 36 mL/min/; PHOSPHORUS 3.3 mg/dL (2.5-4.9)
[2017-04-03 04:58] LABS: INTER. NORMALIZED RATIO 2.2; UREA NITROGEN (BUN) 11 mg/dL (9-23)
[2017-04-03 05:03] LABS: CREATININE 1.9 mg/dL (0.6-1.3)
[2017-04-03 07:15] VITALS: BP 156/85
[2017-04-03 09:04] LABS: C DIFF TOXIN NEGATIVE (NEGATIVE)
[2017-04-03 15:14] VITALS: BP 156/93
[2017-04-03 23:56] VITALS: BP 150/92
[2017-04-04 06:49] LABS: INTER. NORMALIZED RATIO 2.4
[2017-04-04 06:50] LABS: BASOPHIL (%) 0.1 % (0-1); EOSINOPHIL (%) 0.9 % (0-5); EOSINOPHIL COUNT 0.1 K/uL (0-0.3); HEMATOCRIT 23.9 % (36.0-46.0); HEMOGLOBIN 7.9 G/DL (11.9-15.5); IMMATURE GRANULOCYTE (%) 1.5 % (0.0-0.7); LYMPHOCYTE (%) 27.9 % (15-42); LYMPHOCYTE COUNT 2.1 K/uL (1.0-2.8); MCH 28.6 PG (29.0-34.0); MCHC 33.1 G/DL (30.0-36.0); MCV 86.6 FL (83-99); MONOCYTE (%) 14.8 % (3-12); MONOCYTE COUNT 1.1 K/uL (0-0.8); NEUTROPHIL (%) 54.8 % (45-76); NEUTROPHIL COUNT 4.1 K/uL (1.8-6.4); PLATELET COUNT 377 K/uL (156-360); RBC DIS.WIDTH-CV 19.8 % (11.8-14.6); RED BLOOD COUNT 2.76 M/uL (3.80-5.20); WHITE BLOOD COUNT 7.5 K/uL (4.1-10.2)
[2017-04-04 07:16] LABS: ALBUMIN 2.3 G/DL (3.2-4.8); CHLORIDE 114 MEQ/L (99-109); CREATININE 1.6 MG/DL (0.6-1.3); GFR ESTIMATE (CALCULATED) 44 mL/min/; LIPASE 111 U/L (1.0-51.0); PHOSPHORUS 3.1 mg/dL (2.5-4.9); POTASSIUM 3.6 MEQ/L (3.7-5.4); SODIUM 147 MEQ/L (136-147); UREA NITROGEN (BUN) 8 mg/dL (9-23)
[2017-04-04 07:17] LABS: AMYLASE 55 IU/L (1-118); GLUCOSE 114 mg/dL (70-99); MAGNESIUM 1.2 mg/dl (1.3-2.7)
[2017-04-04 07:46] LABS: ALKALINE PHOSPHATASE 113 IU/L (3-129); ALT (GPT) 11 IU/L (3-49); TOTAL PROTEIN 4.8 G/DL (6.4-8.3)
[2017-04-04 07:50] LABS: AST (GOT) 11 IU/L (2-34); TOTAL BILIRUBIN 0.3 MG/DL (0.0-1.0)
[2017-04-04 07:57] VITALS: BP 149/73
[2017-04-05 00:27] VITALS: BP 136/75
[2017-04-05 06:08] LABS: BASOPHIL (%) 0.1 % (0-1); EOSINOPHIL COUNT 0.1 K/uL (0-0.3); HEMATOCRIT 25.1 % (36.0-46.0); IMMATURE GRANULOCYTE (%) 1.1 % (0.0-0.7); LYMPHOCYTE (%) 33.4 % (15-42); LYMPHOCYTE COUNT 2.4 K/uL (1.0-2.8); MCH 28.1 PG (29.0-34.0); MCHC 31.9 G/DL (30.0-36.0); MCV 88.1 FL (83-99); MONOCYTE (%) 13.4 % (3-12); NEUTROPHIL COUNT 3.7 K/uL (1.8-6.4); PLATELET COUNT 478 K/uL (156-360); RBC DIS.WIDTH-CV 19.7 % (11.8-14.6); RBC DIS.WIDTH-SD 62.5 % (39-53); RED BLOOD COUNT 2.85 M/uL (3.80-5.20); WHITE BLOOD COUNT 7.3 K/uL (4.1-10.2)
[2017-04-05 06:21] LABS: INTER. NORMALIZED RATIO 2.7
[2017-04-05 06:32] LABS: ALBUMIN 2.5 G/DL (3.2-4.8); CHLORIDE 113 MEQ/L (99-109); CREATININE 1.4 MG/DL (0.6-1.3); GFR ESTIMATE (CALCULATED) 51 mL/min/; GLUCOSE 131 mg/dL (70-99); PHOSPHORUS 2.8 mg/dL (2.5-4.9); POTASSIUM 3.1 MEQ/L (3.7-5.4); SODIUM 147 MEQ/L (136-147); UREA NITROGEN (BUN) 4 mg/dL (9-23)
[2017-04-05 06:33] LABS: MAGNESIUM 1.7 mg/dl (1.3-2.7)
[2017-04-05 07:52] VITALS: BP 137/65
[2017-04-05 23:40] VITALS: BP 186/98
[2017-04-06 03:49] VITALS: BP 181/97
[2017-04-06 07:12] LABS: HEMATOCRIT 25.4 % (36.0-46.0); HEMOGLOBIN 8.2 G/DL (11.9-15.5); MCH 28.6 PG (29.0-34.0); MCHC 32.3 G/DL (30.0-36.0); MCV 88.5 FL (83-99); PLATELET COUNT 453 K/uL (156-360); RBC DIS.WIDTH-CV 20.1 % (11.8-14.6); RED BLOOD COUNT 2.87 M/uL (3.80-5.20); WHITE BLOOD COUNT 7.6 K/uL (4.1-10.2)
[2017-04-06 07:26] LABS: INTER. NORMALIZED RATIO 2.7
[2017-04-06 07:32] LABS: ALBUMIN 2.7 G/DL (3.2-4.8); CHLORIDE 110 MEQ/L (99-109); CREATININE 1.2 MG/DL (0.6-1.3); GFR ESTIMATE (CALCULATED) > 59 mL/min/; GLUCOSE 105 mg/dL (70-99); MAGNESIUM 1.6 mg/dl (1.3-2.7); PHOSPHORUS 2.5 mg/dL (2.5-4.9); POTASSIUM 3.7 MEQ/L (3.7-5.4); SODIUM 140 MEQ/L (136-147); UREA NITROGEN (BUN) 2 mg/dL (9-23)
[2017-04-06 07:46] LABS: BASOPHIL (%) 0.3 % (0-1); EOSINOPHIL (%) 0.8 % (0-5); EOSINOPHIL COUNT 0.1 K/uL (0-0.3); IMMATURE GRANULOCYTE (%) 0.8 % (0.0-0.7); LYMPHOCYTE (%) 27.2 % (15-42); LYMPHOCYTE COUNT 2.1 K/uL (1.0-2.8); MONOCYTE (%) 12.2 % (3-12); MONOCYTE COUNT 0.9 K/uL (0-0.8); NEUTROPHIL (%) 58.7 % (45-76); NEUTROPHIL COUNT 4.4 K/uL (1.8-6.4)
[2017-04-06 07:59] VITALS: BP 187/95
[2017-04-06 09:49] LABS: LIPASE 136 U/L (1.0-51.0)
[2017-04-06 12:24] VITALS: BP 160/81
[2017-04-06 16:04] VITALS: BP 199/95
[2017-04-06 19:57] VITALS: BP 182/95
[2017-04-07 00:13] VITALS: BP 120/62
[2017-04-07 04:08] VITALS: BP 135/93
[2017-04-07 07:02] LABS: BASOPHIL (%) 0.4 % (0-1); EOSINOPHIL (%) 0.7 % (0-5); EOSINOPHIL COUNT 0.1 K/uL (0-0.3); HEMOGLOBIN 9.2 G/DL (11.9-15.5); IMMATURE GRANULOCYTE (%) 0.8 % (0.0-0.7); LYMPHOCYTE (%) 33.9 % (15-42); LYMPHOCYTE COUNT 2.6 K/uL (1.0-2.8); MCH 28.4 PG (29.0-34.0); MCHC 31.7 G/DL (30.0-36.0); MCV 89.5 FL (83-99); MONOCYTE COUNT 0.8 K/uL (0-0.8); NEUTROPHIL (%) 53.2 % (45-76); NEUTROPHIL COUNT 4.1 K/uL (1.8-6.4); PLATELET COUNT 511 K/uL (156-360); RBC DIS.WIDTH-CV 20.5 % (11.8-14.6); RBC DIS.WIDTH-SD 66.9 % (39-53); RED BLOOD COUNT 3.24 M/uL (3.80-5.20); WHITE BLOOD COUNT 7.6 K/uL (4.1-10.2)
[2017-04-07 07:05] LABS: INTER. NORMALIZED RATIO 2.3
[2017-04-07 07:20] VITALS: BP 147/79
[2017-04-07 07:36] LABS: ALBUMIN 3.1 G/DL (3.2-4.8); ALKALINE PHOSPHATASE 123 IU/L (3-129); ALT (GPT) 10 IU/L (3-49); AST (GOT) 12 IU/L (2-34); CHLORIDE 110 MEQ/L (99-109); CREATININE 1.1 MG/DL (0.6-1.3); GFR ESTIMATE (CALCULATED) > 59 mL/min/; GLUCOSE 99 mg/dL (70-99); POTASSIUM 3.9 MEQ/L (3.7-5.4); SODIUM 142 MEQ/L (136-147); TOTAL BILIRUBIN 0.3 MG/DL (0.0-1.0); TOTAL PROTEIN 6.5 G/DL (6.4-8.3); UREA NITROGEN (BUN) 4 mg/dL (9-23)
[2017-04-07 07:43] LABS: ALKALINE PHOSPHATASE 127 IU/L (3-129); ALT (GPT) 10 IU/L (3-49); AMYLASE 66 IU/L (1-118); AST (GOT) 11 IU/L (2-34); CHLORIDE 111 MEQ/L (99-109); CREATININE 1.1 MG/DL (0.6-1.3); DIRECT BILIRUBIN 0.1 mg/dL (0.0-0.3); GFR ESTIMATE (CALCULATED) > 59 mL/min/; GLUCOSE 100 mg/dL (70-99); MAGNESIUM 2.1 mg/dl (1.3-2.7); PHOSPHORUS 3.3 mg/dL (2.5-4.9); POTASSIUM 4.5 MEQ/L (3.7-5.4); PREALBUMIN 12.5 mg/dL (10-40); SODIUM 144 MEQ/L (136-147); TOTAL BILIRUBIN 0.3 MG/DL (0.0-1.0); TOTAL PROTEIN 6.1 G/DL (6.4-8.3); TRIGLYCERIDES 72 MG/DL (Normal: <150); UREA NITROGEN (BUN) 4 mg/dL (9-23)
[2017-04-07 12:04] VITALS: BP 158/87
[2017-04-07 16:04] VITALS: BP 181/100
[2017-04-07 20:00] VITALS: BP 172/104
[2017-04-08] VITALS (9 sets, daily range): BP systolic 104–166; BP diastolic 51–105
[2017-04-08 05:50] LABS: HEMATOCRIT 26.3 % (36.0-46.0); HEMOGLOBIN 8.3 G/DL (11.9-15.5); MCH 27.6 PG (29.0-34.0); MCHC 31.6 G/DL (30.0-36.0); MCV 87.4 FL (83-99); PLATELET COUNT 459 K/uL (156-360); RBC DIS.WIDTH-CV 20.3 % (11.8-14.6); RBC DIS.WIDTH-SD 64.3 % (39-53); RED BLOOD COUNT 3.01 M/uL (3.80-5.20); WHITE BLOOD COUNT 7.9 K/uL (4.1-10.2)
[2017-04-08 05:57] LABS: INTER. NORMALIZED RATIO 1.4
[2017-04-08 06:24] LABS: AMYLASE 55 IU/L (1-118); C-REACTIVE PROTEIN 10.3 MG/L (0-10); CHLORIDE 111 MEQ/L (99-109); CREATININE 0.9 MG/DL (0.6-1.3); GFR ESTIMATE (CALCULATED) > 59 mL/min/; GLUCOSE 136 mg/dL (70-99); LIPASE 88 U/L (1.0-51.0); MAGNESIUM 1.8 mg/dl (1.3-2.7); PHOSPHORUS 3.3 mg/dL (2.5-4.9); POTASSIUM 4.6 MEQ/L (3.7-5.4); SODIUM 140 MEQ/L (136-147); UREA NITROGEN (BUN) 5 mg/dL (9-23)
[2017-04-08 10:02] LABS: 24 HR VOLUME 7900 MLS; URINE UREA NITROGEN 3476 MG/24 HR
[2017-04-09 03:49] VITALS: BP 116/68
[2017-04-09 05:42] LABS: INTER. NORMALIZED RATIO 1.3
[2017-04-09 06:03] LABS: AMYLASE 52 IU/L (1-118); CHLORIDE 110 MEQ/L (99-109); CREATININE 0.9 MG/DL (0.6-1.3); GFR ESTIMATE (CALCULATED) > 59 mL/min/; GLUCOSE 135 mg/dL (70-99); LIPASE 88 U/L (1.0-51.0); MAGNESIUM 1.7 mg/dl (1.3-2.7); PHOSPHORUS 3.8 mg/dL (2.5-4.9); POTASSIUM 4.7 MEQ/L (3.7-5.4); SODIUM 138 MEQ/L (136-147); UREA NITROGEN (BUN) 6 mg/dL (9-23)
[2017-04-09 08:02] VITALS: BP 147/87
[2017-04-09 09:40] LABS: HEMOGLOBIN A1c (GLYCOHEMOGLOB) 5.6 % (Below 5.7)
[2017-04-09 15:54] VITALS: BP 142/86
[2017-04-09 20:50] VITALS: BP 113/74
[2017-04-10 00:07] VITALS: BP 112/80
[2017-04-10 06:01] LABS: INTER. NORMALIZED RATIO 1.3
[2017-04-10 06:07] LABS: BASOPHIL (%) 0.4 % (0-1); EOSINOPHIL (%) 0.7 % (0-5); EOSINOPHIL COUNT 0.1 K/uL (0-0.3); HEMOGLOBIN 7.7 G/DL (11.9-15.5); LYMPHOCYTE (%) 41.9 % (15-42); LYMPHOCYTE COUNT 3.4 K/uL (1.0-2.8); MCH 28.5 PG (29.0-34.0); MCHC 32.1 G/DL (30.0-36.0); MCV 88.9 FL (83-99); MONOCYTE (%) 11.2 % (3-12); MONOCYTE COUNT 0.9 K/uL (0-0.8); NEUTROPHIL (%) 44.8 % (45-76); NEUTROPHIL COUNT 3.7 K/uL (1.8-6.4); PLATELET COUNT 426 K/uL (156-360); RBC DIS.WIDTH-CV 20.9 % (11.8-14.6); RBC DIS.WIDTH-SD 66.7 % (39-53); WHITE BLOOD COUNT 8.2 K/uL (4.1-10.2)
[2017-04-10 06:09] LABS: ALBUMIN 2.7 G/DL (3.2-4.8); ALKALINE PHOSPHATASE 98 IU/L (3-129); ALT (GPT) 6 IU/L (3-49); AMYLASE 70 IU/L (1-118); AST (GOT) 8 IU/L (2-34); CHLORIDE 109 MEQ/L (99-109); CREATININE 0.9 MG/DL (0.6-1.3); GFR ESTIMATE (CALCULATED) > 59 mL/min/; GLUCOSE 92 mg/dL (70-99); LIPASE 81 U/L (1.0-51.0); MAGNESIUM 1.8 mg/dl (1.3-2.7); POTASSIUM 4.8 MEQ/L (3.7-5.4); POTASSIUM 4.9 MEQ/L (3.7-5.4); SODIUM 136 MEQ/L (136-147); SODIUM 137 MEQ/L (136-147); TOTAL BILIRUBIN 0.2 MG/DL (0.0-1.0); TOTAL PROTEIN 5.3 G/DL (6.4-8.3); UREA NITROGEN (BUN) 9 mg/dL (9-23)
[2017-04-10 06:10] LABS: GLUCOSE 93 mg/dL (70-99)
[2017-04-10 08:02] VITALS: BP 140/73
[2017-04-10 11:38] VITALS: BP 140/73
[2017-04-10] MEDS ORDERED: LOVENOX80 MG/0.8 SC (14:47)
[2017-04-10] MEDS ORDERED: COUMADIN5 MG PO (14:48)
[2017-04-10] MEDS ORDERED: LOPRESSOR25 MG PO (14:48)
[2017-04-10] MEDS ORDERED: PRAZOSIN HCL1 MG PO (14:48)
[2017-04-10] MEDS ORDERED: VENLAFAXINE HC150 M1 PO (14:49)
[2017-04-10] MEDS ORDERED: QUETIAPINE FUMA50 MG PO (14:49)
[2017-04-10] MEDS ORDERED: LOPERAMIDE2 MG PO (14:50)
[2017-04-10] MEDS ORDERED: PANTOPRAZOLE SO40 MG PO (14:50)
[2017-04-11] MEDS ORDERED: COUMADIN5 MG PO (22:56)
[2017-04-11] MEDS ORDERED: EFFEXOR XR150 MG PO (22:58)
[2017-04-11] MEDS ORDERED: IMODIUM A-D2 M2 PO (22:58)
[2017-04-11] MEDS ORDERED: AMBIEN10 MG PO (22:59)
[2017-04-11] MEDS ORDERED: SINGULAIR10 MG PO (22:59)
[2017-04-11] MEDS ORDERED: XANAX1 MG PO (22:59)
[2017-04-11] MEDS ORDERED: WELLBUTRIN SR200 MG PO (22:59)
== END 2017-04-10 16:15 | disposition home health service (06) | DRG 871 ==
LOC: TRA 16:57 → 4WEST 19:50 → EDOF 19:50 → 5SOUTH 19:50 → ENRESERV 19:51 → 4WEST 21:42 → ENRESERV 03-30 15:33 → 5SOUTH 03-30 17:16
PROVIDERS: Emergency Medicine; Hospitalist; Internal Medicine; Internal Medicine Cardiovascular Disease; Internal Medicine Critical Care Medicine; Internal Medicine Gastroenterology; Internal Medicine Nephrology; Obstetrics & Gynecology; Physician Assistant; Student in an Organized Health Care Education/Training Program
DX: A41.51 Sepsis due to Escherichia coli [E. coli] (principal); I46.9 Cardiac arrest, cause unspecified; G92 Toxic encephalopathy; K85.90 Acute pancreatitis without necrosis or infection, unspecified; J96.00 Acute respiratory failure, unspecified whether with hypoxia or hypercapnia; I82.622 Acute embolism and thrombosis of deep veins of left upper extremity; I82.401 Acute embolism and thrombosis of unspecified deep veins of right lower extremity; I82.619 Acute embolism and thrombosis of superficial veins of unspecified upper extremity; T68.XXXA Hypothermia, initial encounter; E78.5 Hyperlipidemia, unspecified; G43.909 Migraine, unspecified, not intractable, without status migrainosus; I50.9 Heart failure, unspecified; I11.0 Hypertensive heart disease with heart failure; F32.9 Major depressive disorder, single episode, unspecified; G62.9 Polyneuropathy, unspecified; I27.20 Pulmonary hypertension, unspecified; F19.239 Other psychoactive substance dependence with withdrawal, unspecified; K72.00 Acute and subacute hepatic failure without coma; N17.0 Acute kidney failure with tubular necrosis; J45.909 Unspecified asthma, uncomplicated; E83.51 Hypocalcemia; F10.10 Alcohol abuse, uncomplicated; F43.12 Post-traumatic stress disorder, chronic; G89.29 Other chronic pain; Z68.35 Body mass index [BMI] 35.0-35.9, adult; E44.0 Moderate protein-calorie malnutrition; K21.9 Gastro-esophageal reflux disease without esophagitis; K80.40 Calculus of bile duct with cholecystitis, unspecified, without obstruction; R65.21 Severe sepsis with septic shock; E87.0 Hyperosmolality and hypernatremia; E87.4 Mixed disorder of acid-base balance; E11.65 Type 2 diabetes mellitus with hyperglycemia; M79.7 Fibromyalgia; E86.9 Volume depletion, unspecified; K52.9 Noninfective gastroenteritis and colitis, unspecified; J21.9 Acute bronchiolitis, unspecified; T50.905A Adverse effect of unspecified drugs, medicaments and biological substances, initial encounter; I34.0 Nonrheumatic mitral (valve) insufficiency; E78.00 Pure hypercholesterolemia, unspecified; I24.8 Other forms of acute ischemic heart disease; K75.89 Other specified inflammatory liver diseases; D63.8 Anemia in other chronic diseases classified elsewhere; E87.6 Hypokalemia; Z98.84 Bariatric surgery status; Z96.653 Presence of artificial knee joint, bilateral; Z90.710 Acquired absence of both cervix and uterus; Z79.891 Long term (current) use of opiate analgesic; Z90.49 Acquired absence of other specified parts of digestive tract; Z87.410 Personal history of cervical dysplasia; Z79.01 Long term (current) use of anticoagulants; Z93.1 Gastrostomy status; Z98.1 Arthrodesis status; Z82.5 Family history of asthma and other chronic lower respiratory diseases; Z80.1 Family history of malignant neoplasm of trachea, bronchus and lung; Z82.49 Family history of ischemic heart disease and other diseases of the circulatory system
CPT/HCPCS: 36600; 36620; 70450; 71045; 71275; 72125; 74176; 74181; 76770; 80048; 80053; 80069; 80076; 81003; 81050; 82150; 82248; 82306; 82330; 82436; 82550; 82553; 82570; 82803; 82948; 83036; 83605; 83690; 83735; 83880; 83935; 83970; 84100; 84133; 84134; 84300; 84478; 84484; 84540; 84550; 84630 90; 85025; 85025 91; 85027; 85610; 85730; 86140; 87040; 87070; 87077; 87086; 87186; 87205; 87493; 87502; 87506; 87641; 87801; 90686; 92526 GN; 92610 GN; 93005; 93306; 93970; 93971; 94002; 94003; 94640 76; 94799; 97530 GO; 99202; 99281; 99285; C1751; G0480; J0171; J0360; J0461; J0610; J1170; J1630; J1644; J1650; J1815; J2060; J2250; J2405; J2543; J2550; J2704; J2765; J3010; J3030; J3411; J3475; J3480; J7030; J7040; J7050; J7070; S0028

== ENCOUNTER 2017-04-11 16:54 | Inpatient (IN) | payer BC, OTHER ==
[~2017-04-11] VITALS: Ht 167.6 cm; Wt 81.0 kg
[~2017-04-11 16:54] MED LIST changes: +COUMADIN5 MG PO; +LOPERAMIDE2 MG PO; +LOPRESSOR25 MG PO; +LOVENOX80 MG/0.8 SC; +OXYCONTIN20 MG PO; +PANTOPRAZOLE SO40 MG PO; +PRAZOSIN HCL1 MG PO; +QUETIAPINE FUMA50 MG PO; +VENLAFAXINE HC150 M1 PO
[2017-04-11 17:47] LABS: BASOPHIL (%) 0.5 % (0-1); EOSINOPHIL COUNT 0.1 K/uL (0-0.3); HEMATOCRIT 25.7 % (36.0-46.0); HEMOGLOBIN 8.2 G/DL (11.9-15.5); IMMATURE GRANULOCYTE (%) 0.9 % (0.0-0.7); LYMPHOCYTE (%) 46.1 % (15-42); MCH 28.7 PG (29.0-34.0); MCHC 31.9 G/DL (30.0-36.0); MCV 89.9 FL (83-99); MONOCYTE (%) 10.6 % (3-12); MONOCYTE COUNT 0.9 K/uL (0-0.8); NEUTROPHIL (%) 40.9 % (45-76); NEUTROPHIL COUNT 3.6 K/uL (1.8-6.4); PLATELET COUNT 483 K/uL (156-360); RBC DIS.WIDTH-CV 20.9 % (11.8-14.6); RBC DIS.WIDTH-SD 68.7 % (39-53); RED BLOOD COUNT 2.86 M/uL (3.80-5.20); WHITE BLOOD COUNT 8.8 K/uL (4.1-10.2)
[2017-04-11 17:59] LABS: CHLORIDE 113 mEq/L (99-109); POTASSIUM 4.4 mEq/L (3.7-5.4); SODIUM 139 mEq/L (136-147)
[2017-04-11 18:01] LABS: GLUCOSE 88 mg/dL (70-99)
[2017-04-11 18:04] LABS: SERUM ETHYL ALCOHOL < 10 mg/dL
[2017-04-11 18:05] LABS: CREATININE 0.9 mg/dL (0.6-1.3); GFR ESTIMATE (CALCULATED) > 59 mL/min/
[2017-04-11 18:06] LABS: UREA NITROGEN (BUN) 5 mg/dL (9-23)
[2017-04-11 18:07] LABS: TROP-I INTERPRETATION NEGATIVE; TROPONIN-I < 0.01 ng/mL (0.0-0.30)
[2017-04-11 18:11] LABS: INTER. NORMALIZED RATIO 1.7
[2017-04-11 18:26] LABS: PTT 37.5 SEC (25-37)
[2017-04-11 19:59] LABS: AMPHETAMINE NEGATIVE (500 ng/mL); BARBITURATES NEGATIVE (200 ng/mL); BENZODIAZEPINES PRESUMPTIVE POSITIVE (150 ng/mL); BUPRENORPHINE NEGATIVE (10 ng/mL); COCAINE NEGATIVE (150 ng/mL); METHADONE NEGATIVE (200 ng/mL); METHAMPHETAMINE NEGATIVE (500 ng/mL); OPIATES (MORPHINE) NEGATIVE (100 ng/mL); OXYCODONE PRESUMPTIVE POSITIVE (100 ng/mL); PHENCYCLIDINE NEGATIVE (25 ng/mL); PROPOXYPHENE NEGATIVE (300 ng/mL); THC CANNABINOIDS NEGATIVE (50 ng/mL); TRICYCLIC ANTIDEPRESSANTS NEGATIVE (300 ng/mL)
[2017-04-11 20:26] LABS: BENZODIAZEPINES, URINE SCREEN POSITIVE (200 ng/mL)
[2017-04-11] MEDS ORDERED: COUMADIN5 MG PO (22:56)
[2017-04-11] MEDS ORDERED: EFFEXOR XR150 MG PO (22:58)
[2017-04-11] MEDS ORDERED: IMODIUM A-D2 M2 PO (22:58)
[2017-04-11] MEDS ORDERED: AMBIEN10 MG PO (22:59)
[2017-04-11] MEDS ORDERED: WELLBUTRIN SR200 MG PO (22:59)
[2017-04-11] MEDS ORDERED: XANAX1 MG PO (22:59)
[2017-04-11] MEDS ORDERED: SINGULAIR10 MG PO (22:59)
[2017-04-11 23:22] LABS: LIPASE 87 U/L (1.0-51.0)
[2017-04-12 00:27] LABS: TROP-I INTERPRETATION NEGATIVE; TROPONIN-I 0.01 ng/mL (0.0-0.30)
[2017-04-12 02:42] VITALS: BP 108/70
[2017-04-12 04:30] VITALS: BP 109/58
[2017-04-12 07:09] LABS: HEMATOCRIT 25.5 % (36.0-46.0); MCH 28.6 PG (29.0-34.0); MCHC 31.4 G/DL (30.0-36.0); MCV 91.1 FL (83-99); PLATELET COUNT 466 K/uL (156-360); RBC DIS.WIDTH-SD 69.1 % (39-53); WHITE BLOOD COUNT 7.1 K/uL (4.1-10.2)
[2017-04-12 07:25] LABS: TROP-I INTERPRETATION NEGATIVE; TROPONIN-I < 0.01 ng/mL (0.0-0.30)
[2017-04-12 07:30] VITALS: BP 117/77
[2017-04-12 07:42] LABS: ALBUMIN 2.6 G/DL (3.2-4.8); CHLORIDE 112 MEQ/L (99-109); CREATININE 0.7 MG/DL (0.6-1.3); GFR ESTIMATE (CALCULATED) > 59 mL/min/; GLUCOSE 69 mg/dL (70-99); SODIUM 140 MEQ/L (136-147); TOTAL BILIRUBIN 0.2 MG/DL (0.0-1.0); TOTAL PROTEIN 5.1 G/DL (6.4-8.3); UREA NITROGEN (BUN) 5 mg/dL (9-23)
[2017-04-12 08:38] LABS: ALKALINE PHOSPHATASE 261 IU/L (3-129); ALT (GPT) 74 IU/L (3-49); AST (GOT) 242 IU/L (2-34)
[2017-04-12 12:08] VITALS: BP 114/69
[2017-04-12 16:09] VITALS: BP 111/59
[2017-04-12 20:10] VITALS: BP 112/55
[2017-04-13 00:20] VITALS: BP 118/59
[2017-04-13 06:28] LABS: BASOPHIL (%) 1.1 % (0-1); BASOPHIL COUNT 0.1 K/uL (0-0.1); EOSINOPHIL (%) 1.3 % (0-5); EOSINOPHIL COUNT 0.1 K/uL (0-0.3); HEMOGLOBIN 7.5 G/DL (11.9-15.5); IMMATURE GRANULOCYTE (%) 0.6 % (0.0-0.7); LYMPHOCYTE (%) 48.3 % (15-42); LYMPHOCYTE COUNT 2.6 K/uL (1.0-2.8); MCH 28.2 PG (29.0-34.0); MCHC 31.3 G/DL (30.0-36.0); MCV 90.2 FL (83-99); MONOCYTE (%) 10.9 % (3-12); MONOCYTE COUNT 0.6 K/uL (0-0.8); NEUTROPHIL (%) 37.8 % (45-76); PLATELET COUNT 487 K/uL (156-360); RBC DIS.WIDTH-SD 68.9 % (39-53); RED BLOOD COUNT 2.66 M/uL (3.80-5.20); WHITE BLOOD COUNT 5.4 K/uL (4.1-10.2)
[2017-04-13 07:31] LABS: ALBUMIN 2.6 G/DL (3.2-4.8); ALKALINE PHOSPHATASE 273 IU/L (3-129); ALT (GPT) 63 IU/L (3-49); CHLORIDE 111 MEQ/L (99-109); CREATININE 0.8 MG/DL (0.6-1.3); GFR ESTIMATE (CALCULATED) > 59 mL/min/; POTASSIUM 4.9 MEQ/L (3.7-5.4); SODIUM 142 MEQ/L (136-147); TOTAL BILIRUBIN 0.2 MG/DL (0.0-1.0); TOTAL PROTEIN 4.9 G/DL (6.4-8.3); UREA NITROGEN (BUN) 5 mg/dL (9-23)
[2017-04-13 07:39] LABS: AST (GOT) 80 IU/L (2-34); GLUCOSE 95 mg/dL (70-99)
[2017-04-13 07:44] LABS: LIPASE 68 U/L (1.0-51.0)
[2017-04-13 12:07] VITALS: BP 116/62
[2017-04-13 17:27] VITALS: BP 117/71
[2017-04-13 19:43] VITALS: BP 133/59
[2017-04-13 23:26] VITALS: BP 93/51
[2017-04-14] VITALS (8 sets, daily range): BP systolic 86–135; BP diastolic 48–74
[2017-04-14 06:28] LABS: BASOPHIL (%) 0.5 % (0-1); EOSINOPHIL (%) 1.2 % (0-5); EOSINOPHIL COUNT 0.1 K/uL (0-0.3); HEMATOCRIT 24.8 % (36.0-46.0); HEMOGLOBIN 7.7 G/DL (11.9-15.5); IMMATURE GRANULOCYTE (%) 0.8 % (0.0-0.7); LYMPHOCYTE COUNT 3.5 K/uL (1.0-2.8); MCH 28.5 PG (29.0-34.0); MCV 91.9 FL (83-99); MONOCYTE (%) 12.3 % (3-12); MONOCYTE COUNT 0.8 K/uL (0-0.8); NEUTROPHIL (%) 31.2 % (45-76); PLATELET COUNT 477 K/uL (156-360); RBC DIS.WIDTH-CV 21.2 % (11.8-14.6); RBC DIS.WIDTH-SD 70.8 % (39-53); WHITE BLOOD COUNT 6.4 K/uL (4.1-10.2)
[2017-04-14 07:04] LABS: ALBUMIN 2.6 G/DL (3.2-4.8); ALKALINE PHOSPHATASE 290 IU/L (3-129); ALT (GPT) 47 IU/L (3-49); CHLORIDE 111 MEQ/L (99-109); CREATININE 0.9 MG/DL (0.6-1.3); GFR ESTIMATE (CALCULATED) > 59 mL/min/; GLUCOSE 82 mg/dL (70-99); POTASSIUM 4.5 MEQ/L (3.7-5.4); SODIUM 139 MEQ/L (136-147); TOTAL BILIRUBIN 0.2 MG/DL (0.0-1.0); TOTAL PROTEIN 5.3 G/DL (6.4-8.3); UREA NITROGEN (BUN) 6 mg/dL (9-23)
[2017-04-14 07:09] LABS: AST (GOT) 40 IU/L (2-34)
[2017-04-14 10:23] LABS: HEPATITIS B SURFACE ANTIGEN Nonreactive; HEPATITIS C ANTIBODY Nonreactive
[2017-04-14 10:25] LABS: ANTI-HEPATITIS A VIRUS (IGM) Nonreactive; ANTI-HEPATITIS B CORE (IGM) Nonreactive
[2017-04-14 13:48] LABS: HEMATOCRIT 29.2 % (36.0-46.0); HEMOGLOBIN 9.3 G/DL (11.9-15.5); IMM.RETIC FRACTION 21.3 % (3-19); MCV 89.8 FL (83-99); RETIC HGB EQUIVALENT 30.2 (28-36); RETICULOCYTE COUNT 1.6 % (0.5-1.8)
[2017-04-14 14:14] LABS: IRON 168 MCG/DL (35-150); TRANSFERRIN (TIBC) 229.9 mg/dL (215-380); TRANSFERRIN SATUR. 73 % (20-55)
[2017-04-14 14:27] LABS: LACTATE DEHYDROGENASE 153 IU/L (20-246)
[2017-04-14 14:32] LABS: FERRITIN 86 NG/ML (10-291)
[2017-04-14 14:50] LABS: A/G RATIO 1.1 (1.1-1.8); ALBUMIN 2.9 G/DL (3.4-5.0); GLOBULINS 2.7 G/DL (2.3-3.5); TOTAL PROTEIN 5.6 G/DL (6.4-8.2)
[2017-04-15 04:28] VITALS: BP 117/76
[2017-04-15 06:43] LABS: HEMATOCRIT 30.1 % (36.0-46.0); HEMOGLOBIN 9.6 G/DL (11.9-15.5); MCH 28.5 PG (29.0-34.0); MCHC 31.9 G/DL (30.0-36.0); MCV 89.3 FL (83-99); PLATELET COUNT 571 K/uL (156-360); RBC DIS.WIDTH-CV 20.6 % (11.8-14.6); RBC DIS.WIDTH-SD 66.9 % (39-53); WHITE BLOOD COUNT 7.1 K/uL (4.1-10.2)
[2017-04-15 06:49] LABS: RED BLOOD COUNT 3.37 M/uL (3.80-5.20)
[2017-04-15 06:59] LABS: CHLORIDE 107 MEQ/L (99-109); CREATININE 0.9 MG/DL (0.6-1.3); GFR ESTIMATE (CALCULATED) > 59 mL/min/; GLUCOSE 78 mg/dL (70-99); POTASSIUM 5.2 MEQ/L (3.7-5.4); SODIUM 137 MEQ/L (136-147); UREA NITROGEN (BUN) 7 mg/dL (9-23)
[2017-04-15 07:33] VITALS: BP 109/59
[2017-04-15 12:42] VITALS: BP 113/61
[2017-04-15 14:46] LABS: INTER. NORMALIZED RATIO 1.3
[2017-04-15 16:27] VITALS: BP 121/71
[2017-04-15 19:14] VITALS: BP 129/80
[2017-04-16 00:15] VITALS: BP 111/73
[2017-04-16 04:42] VITALS: BP 129/82
[2017-04-16 07:18] LABS: INTER. NORMALIZED RATIO 1.3
[2017-04-16 07:37] VITALS: BP 146/94
[2017-04-16 14:48] LABS: ALBUMIN 2.76 G/DL (3.6-4.9); ALPHA-1 GLOBULIN 0.37 G/DL (0.15-0.40); ALPHA-2 GLOBULIN 0.74 G/DL (0.45-0.85); BETA-GLOBULIN 0.74 G/DL (0.65-1.15); GAMMA-GLOBULIN 0.98 G/DL (0.60-1.35)
[2017-04-16] MEDS ORDERED: BENTYL20 MG PO (17:09)
[2017-04-16] MEDS ORDERED: COUMADIN1 MG PO ×2 (17:15→17:20)
[2017-04-16] MEDS ORDERED: LOVENOX80 MG/0.8 SC (17:16)
[2017-04-17 00:57] VITALS: BP 125/83
[2017-04-17 06:56] LABS: INTER. NORMALIZED RATIO 1.6
[2017-04-17 07:24] VITALS: BP 135/96
[2017-04-17 11:35] VITALS: BP 159/109
[2017-04-17 15:23] LABS: BASOPHIL (%) 0.4 % (0-1); EOSINOPHIL (%) 0.4 % (0-5); HEMATOCRIT 41.8 % (36.0-46.0); IMMATURE GRANULOCYTE (%) 1.4 % (0.0-0.7); LYMPHOCYTE (%) 24.5 % (15-42); LYMPHOCYTE COUNT 2.4 K/uL (1.0-2.8); MCHC 31.3 G/DL (30.0-36.0); MCV 92.5 FL (83-99); MONOCYTE (%) 9.5 % (3-12); MONOCYTE COUNT 0.9 K/uL (0-0.8); NEUTROPHIL (%) 63.8 % (45-76); NEUTROPHIL COUNT 6.1 K/uL (1.8-6.4); PLATELET COUNT 413 K/uL (156-360); RBC DIS.WIDTH-CV 20.3 % (11.8-14.6); RBC DIS.WIDTH-SD 67.9 % (39-53); WHITE BLOOD COUNT 9.6 K/uL (4.1-10.2)
[2017-04-17 15:25] LABS: HEMOGLOBIN 13.1 G/DL (11.9-15.5); RED BLOOD COUNT 4.52 M/uL (3.80-5.20)
[2017-04-17 15:29] LABS: CHLORIDE 103 MEQ/L (99-109); GFR ESTIMATE (CALCULATED) > 59 mL/min/; GLUCOSE 107 mg/dL (70-99); SODIUM 133 MEQ/L (136-147); UREA NITROGEN (BUN) 10 mg/dL (9-23)
[2017-04-17 15:31] VITALS: BP 132/93
[2017-04-17 19:15] VITALS: BP 138/72
[2017-04-17 23:42] VITALS: BP 131/85
[2017-04-18 03:50] VITALS: BP 118/80
[2017-04-18 08:33] VITALS: BP 142/100
[2017-04-18 11:26] VITALS: BP 141/99
[2017-04-18] MEDS ORDERED: COUMADIN4 MG PO ×2 (13:41→13:43)
[2017-04-18] MEDS ORDERED: FOLIC ACID1 MG PO (13:47)
[2017-04-18] MEDS ORDERED: B-1100 MG PO (13:47)
[2017-04-18 15:51] VITALS: BP 160/101
[2017-04-18 19:47] VITALS: BP 167/108
[2017-04-18 23:21] VITALS: BP 128/81
[2017-04-19 03:37] VITALS: BP 151/82
[2017-04-19 06:18] LABS: BASOPHIL (%) 0.3 % (0-1); EOSINOPHIL (%) 1.2 % (0-5); EOSINOPHIL COUNT 0.1 K/uL (0-0.3); HEMATOCRIT 35.1 % (36.0-46.0); HEMOGLOBIN 11.3 G/DL (11.9-15.5); IMMATURE GRANULOCYTE (%) 0.8 % (0.0-0.7); LYMPHOCYTE (%) 32.4 % (15-42); LYMPHOCYTE COUNT 3.6 K/uL (1.0-2.8); MCH 28.2 PG (29.0-34.0); MCHC 32.2 G/DL (30.0-36.0); MONOCYTE (%) 12.9 % (3-12); MONOCYTE COUNT 1.4 K/uL (0-0.8); NEUTROPHIL (%) 52.4 % (45-76); NEUTROPHIL COUNT 5.7 K/uL (1.8-6.4); PLATELET COUNT 522 K/uL (156-360); RBC DIS.WIDTH-CV 18.9 % (11.8-14.6); RBC DIS.WIDTH-SD 60.8 % (39-53); RED BLOOD COUNT 4.01 M/uL (3.80-5.20)
[2017-04-19 06:31] LABS: CHLORIDE 101 MEQ/L (99-109); CREATININE 1.2 MG/DL (0.6-1.3); GFR ESTIMATE (CALCULATED) > 59 mL/min/; GLUCOSE 98 mg/dL (70-99); POTASSIUM 4.3 MEQ/L (3.7-5.4); SODIUM 133 MEQ/L (136-147); UREA NITROGEN (BUN) 11 mg/dL (9-23)
[2017-04-19 06:36] LABS: MCV 87.5 FL (83-99)
[2017-04-19 06:49] LABS: INTER. NORMALIZED RATIO 2.1
[2017-04-19 07:43] VITALS: BP 132/89
[2017-04-19 09:08] LABS: MAGNESIUM 1.8 mg/dl (1.3-2.7); PHOSPHORUS 3.4 mg/dL (2.5-4.9)
[2017-04-19 15:52] VITALS: BP 149/76
[2017-04-19 19:10] VITALS: BP 166/108
[2017-04-19 23:42] VITALS: BP 147/106
[2017-04-20] VITALS (15 sets, daily range): BP systolic 119–166; BP diastolic 64–104
[2017-04-20 05:08] LABS: HEMATOCRIT 33.1 % (36.0-46.0); HEMOGLOBIN 10.5 G/DL (11.9-15.5); MCH 28.1 PG (29.0-34.0); MCHC 31.7 G/DL (30.0-36.0); MCV 88.5 FL (83-99); PLATELET COUNT 533 K/uL (156-360); RBC DIS.WIDTH-CV 18.7 % (11.8-14.6); RBC DIS.WIDTH-SD 61.1 % (39-53); RED BLOOD COUNT 3.74 M/uL (3.80-5.20); WHITE BLOOD COUNT 9.5 K/uL (4.1-10.2)
[2017-04-20 05:09] LABS: BASOPHIL (%) 0.4 % (0-1); EOSINOPHIL (%) 1.3 % (0-5); EOSINOPHIL COUNT 0.1 K/uL (0-0.3); HEMATOCRIT 33.4 % (36.0-46.0); HEMOGLOBIN 10.5 G/DL (11.9-15.5); IMMATURE GRANULOCYTE (%) 0.9 % (0.0-0.7); LYMPHOCYTE (%) 26.7 % (15-42); LYMPHOCYTE COUNT 2.5 K/uL (1.0-2.8); MCH 27.9 PG (29.0-34.0); MCHC 31.4 G/DL (30.0-36.0); MCV 88.6 FL (83-99); MONOCYTE COUNT 1.3 K/uL (0-0.8); NEUTROPHIL (%) 56.7 % (45-76); NEUTROPHIL COUNT 5.4 K/uL (1.8-6.4); PLATELET COUNT 539 K/uL (156-360); RBC DIS.WIDTH-CV 18.8 % (11.8-14.6); RED BLOOD COUNT 3.77 M/uL (3.80-5.20); WHITE BLOOD COUNT 9.5 K/uL (4.1-10.2)
[2017-04-20 05:19] LABS: INTER. NORMALIZED RATIO 2.2
[2017-04-20 05:33] LABS: ALBUMIN 3.6 G/DL (3.2-4.8); ALKALINE PHOSPHATASE 232 IU/L (3-129); ALT (GPT) 19 IU/L (3-49); CHLORIDE 101 MEQ/L (99-109); CREATININE 1.3 MG/DL (0.6-1.3); GFR ESTIMATE (CALCULATED) 56 mL/min/; GLUCOSE 142 mg/dL (70-99); POTASSIUM 4.4 MEQ/L (3.7-5.4); SODIUM 129 MEQ/L (136-147); UREA NITROGEN (BUN) 13 mg/dL (9-23)
[2017-04-20 05:34] LABS: AST (GOT) 17 IU/L (2-34); TOTAL BILIRUBIN 0.4 MG/DL (0.0-1.0); TOTAL PROTEIN 6.7 G/DL (6.4-8.3)
[2017-04-20 16:03] LABS: HEMATOCRIT 27.3 % (36.0-46.0); HEMOGLOBIN 8.7 G/DL (11.9-15.5); MCV 90.1 FL (83-99)
[2017-04-20 16:52] LABS: HEMATOCRIT 29.4 % (36.0-46.0); HEMOGLOBIN 9.5 G/DL (11.9-15.5); MCV 87.8 FL (83-99)
[2017-04-20 17:04] LABS: INTER. NORMALIZED RATIO 1.3
[2017-04-20 21:00] LABS: HEMATOCRIT 26.2 % (36.0-46.0); HEMOGLOBIN 8.5 G/DL (11.9-15.5); MCV 88.8 FL (83-99)
[2017-04-21] VITALS (14 sets, daily range): BP systolic 99–153; BP diastolic 58–90
[2017-04-21 03:30] LABS: BASOPHIL (%) 0.1 % (0-1); EOSINOPHIL (%) 1.4 % (0-5); EOSINOPHIL COUNT 0.1 K/uL (0-0.3); HEMATOCRIT 24.5 % (36.0-46.0); HEMOGLOBIN 8.1 G/DL (11.9-15.5); IMMATURE GRANULOCYTE (%) 0.5 % (0.0-0.7); MCHC 33.1 G/DL (30.0-36.0); MCV 87.8 FL (83-99); MONOCYTE (%) 13.1 % (3-12); MONOCYTE COUNT 1.1 K/uL (0-0.8); NEUTROPHIL (%) 60.9 % (45-76); RBC DIS.WIDTH-CV 18.5 % (11.8-14.6); RBC DIS.WIDTH-SD 59.7 % (39-53); WHITE BLOOD COUNT 8.1 K/uL (4.1-10.2)
[2017-04-21 03:32] LABS: PLATELET COUNT 364 K/uL (156-360); RED BLOOD COUNT 2.79 M/uL (3.80-5.20)
[2017-04-21 03:36] LABS: INTER. NORMALIZED RATIO 1.2
[2017-04-21 03:39] LABS: CHLORIDE 106 mEq/L (99-109); POTASSIUM 4.1 mEq/L (3.7-5.4)
[2017-04-21 03:44] LABS: CREATININE 0.9 mg/dL (0.6-1.3); GFR ESTIMATE (CALCULATED) > 59 mL/min/
[2017-04-21 03:45] LABS: UREA NITROGEN (BUN) 8 mg/dL (9-23)
[2017-04-21 03:47] LABS: GLUCOSE 97 mg/dL (70-99); SODIUM 137 mEq/L (136-147)
[2017-04-21 10:32] LABS: HEMATOCRIT 23.8 % (36.0-46.0); HEMOGLOBIN 7.8 G/DL (11.9-15.5); MCV 88.8 FL (83-99)
[2017-04-21 15:05] LABS: HEMATOCRIT 28.4 % (36.0-46.0); HEMOGLOBIN 8.9 G/DL (11.9-15.5); MCV 89.3 FL (83-99)
[2017-04-21 21:57] LABS: HEMATOCRIT 34.3 % (36.0-46.0); MCV 87.5 FL (83-99)
[2017-04-21 21:59] LABS: HEMOGLOBIN 11.2 G/DL (11.9-15.5)
[2017-04-22 00:04] VITALS: BP 131/84
[2017-04-22 03:21] VITALS: BP 128/81
[2017-04-22 07:18] LABS: BASOPHIL (%) 0.2 % (0-1); EOSINOPHIL (%) 1.9 % (0-5); EOSINOPHIL COUNT 0.2 K/uL (0-0.3); HEMATOCRIT 32.5 % (36.0-46.0); HEMOGLOBIN 10.7 G/DL (11.9-15.5); IMMATURE GRANULOCYTE (%) 0.8 % (0.0-0.7); LYMPHOCYTE (%) 21.3 % (15-42); LYMPHOCYTE COUNT 1.8 K/uL (1.0-2.8); MCH 28.2 PG (29.0-34.0); MCHC 32.9 G/DL (30.0-36.0); MCV 85.5 FL (83-99); MONOCYTE (%) 14.6 % (3-12); MONOCYTE COUNT 1.2 K/uL (0-0.8); NEUTROPHIL (%) 61.2 % (45-76); NEUTROPHIL COUNT 5.2 K/uL (1.8-6.4); RBC DIS.WIDTH-CV 17.5 % (11.8-14.6); RBC DIS.WIDTH-SD 54.4 % (39-53); WHITE BLOOD COUNT 8.4 K/uL (4.1-10.2)
[2017-04-22 08:06] VITALS: BP 136/72
[2017-04-22 08:50] LABS: CHLORIDE 103 MEQ/L (99-109); CREATININE 0.9 MG/DL (0.6-1.3); GFR ESTIMATE (CALCULATED) > 59 mL/min/; GLUCOSE 92 mg/dL (70-99); POTASSIUM 4.1 MEQ/L (3.7-5.4); SODIUM 134 MEQ/L (136-147); UREA NITROGEN (BUN) 5 mg/dL (9-23)
[2017-04-22 08:54] LABS: PLAT.SUFFICIENCY ADEQUATE; PLATELET COUNT 309 K/uL (156-360)
[2017-04-22 19:50] VITALS: BP 135/80
[2017-04-22 23:15] VITALS: BP 140/88
[2017-04-22 23:35] VITALS: BP 151/98
[2017-04-23 06:36] LABS: INTER. NORMALIZED RATIO 1.1
[2017-04-23 08:14] LABS: HEMATOCRIT 27.2 % (36.0-46.0); HEMOGLOBIN 8.9 G/DL (11.9-15.5); MCH 28.7 PG (29.0-34.0); MCHC 32.7 G/DL (30.0-36.0); MCV 87.7 FL (83-99); PLATELET COUNT 332 K/uL (156-360); RBC DIS.WIDTH-CV 17.4 % (11.8-14.6); RBC DIS.WIDTH-SD 55.5 % (39-53); WHITE BLOOD COUNT 10.3 K/uL (4.1-10.2)
[2017-04-23 09:44] LABS: ALBUMIN 3.2 G/DL (3.2-4.8); ALKALINE PHOSPHATASE 144 IU/L (3-129); ALT (GPT) 10 IU/L (3-49); AST (GOT) 13 IU/L (2-34); CHLORIDE 115 MEQ/L (99-109); CREATININE 0.8 MG/DL (0.6-1.3); GFR ESTIMATE (CALCULATED) > 59 mL/min/; GLUCOSE 89 mg/dL (70-99); POTASSIUM 4.6 MEQ/L (3.7-5.4); SODIUM 147 MEQ/L (136-147); TOTAL BILIRUBIN 0.8 MG/DL (0.0-1.0); TOTAL PROTEIN 5.6 G/DL (6.4-8.3); UREA NITROGEN (BUN) 6 mg/dL (9-23)
[2017-04-23] MEDS ORDERED: BENTYL20 MG PO ×2 (11:15)
[2017-04-23] MEDS ORDERED: PRAZOSIN HCL1 MG PO (11:15)
[2017-04-23] MEDS ORDERED: LOPRESSOR25 MG PO (11:15)
[2017-04-23] MEDS ORDERED: PRAVASTATIN SOD80 MG PO (11:15)
[2017-04-23] MEDS ORDERED: SUCRALFATE1 GM/10 ML PO (11:18)
[2017-04-23 12:42] VITALS: BP 117/73
[2017-04-23 15:32] VITALS: BP 131/92
[2017-04-23 20:10] VITALS: BP 140/83
[2017-04-23 23:19] VITALS: BP 109/71
[2017-04-24 05:51] LABS: HEMATOCRIT 27.9 % (36.0-46.0); MCH 28.7 PG (29.0-34.0); MCHC 32.3 G/DL (30.0-36.0); MCV 88.9 FL (83-99); PLATELET COUNT 310 K/uL (156-360); RBC DIS.WIDTH-CV 17.3 % (11.8-14.6); RBC DIS.WIDTH-SD 55.5 % (39-53); RED BLOOD COUNT 3.14 M/uL (3.80-5.20); WHITE BLOOD COUNT 10.4 K/uL (4.1-10.2)
[2017-04-24 05:52] LABS: INTER. NORMALIZED RATIO 1.1
[2017-04-24 06:33] LABS: CHLORIDE 108 MEQ/L (99-109); CREATININE 0.8 MG/DL (0.6-1.3); GFR ESTIMATE (CALCULATED) > 59 mL/min/; GLUCOSE 100 mg/dL (70-99); POTASSIUM 3.9 MEQ/L (3.7-5.4); UREA NITROGEN (BUN) 6 mg/dL (9-23)
[2017-04-24 06:35] LABS: SODIUM 138 MEQ/L (136-147)
[2017-04-24 11:55] VITALS: BP 136/77
[2017-04-24 12:57] VITALS: BP 123/79
[2017-04-24 15:08] VITALS: BP 117/82
[2017-04-24 19:00] VITALS: BP 129/77
[2017-04-25 00:13] VITALS: BP 101/56
[2017-04-25 07:54] VITALS: BP 120/83
[2017-04-25 11:03] VITALS: BP 108/69
[2017-04-25 16:00] VITALS: BP 147/68
[2017-04-25 17:00] VITALS: BP 111/60
[2017-04-25 20:07] VITALS: BP 126/78
[2017-04-26 00:12] VITALS: BP 105/61
[2017-04-26 07:53] VITALS: BP 118/57
[2017-04-26 11:31] VITALS: BP 153/80
[2017-04-26 15:24] VITALS: BP 127/66
[2017-04-26 19:50] VITALS: BP 133/75
== END 2017-04-26 21:40 | DRG 981 ==
LOC: EME 16:54 → 5WEST 23:11 → EDOF 23:11 → ENRESERV 23:13 → 5WEST 04-12 01:29
PROVIDERS: Emergency Medicine; Hospitalist; Internal Medicine; Physician Assistant; Physician Assistant Medical; Specialist; Student in an Organized Health Care Education/Training Program
PROC: 30233K1 Transfusion of Nonautologous Frozen Plasma into Peripheral Vein, Percutaneous Approach (ICD-10-PCS; 2017-04-20)
PROC: 30233N1 Transfusion of Nonautologous Red Blood Cells into Peripheral Vein, Percutaneous Approach (ICD-10-PCS; 2017-04-21)
PROC: 06H03DZ Insertion of Intraluminal Device into Inferior Vena Cava, Percutaneous Approach (ICD-10-PCS; principal; 2017-04-23)
DX: S70.12XA Contusion of left thigh, initial encounter (principal); S71.112A Laceration without foreign body, left thigh, initial encounter; S00.212A Abrasion of left eyelid and periocular area, initial encounter; W19.XXXA Unspecified fall, initial encounter; Y92.230 Patient room in hospital as the place of occurrence of the external cause; D62 Acute posthemorrhagic anemia; D63.8 Anemia in other chronic diseases classified elsewhere; N17.9 Acute kidney failure, unspecified; D69.1 Qualitative platelet defects; E87.1 Hypo-osmolality and hyponatremia; E87.2 Acidosis; I95.9 Hypotension, unspecified; K85.20 Alcohol induced acute pancreatitis without necrosis or infection; K86.1 Other chronic pancreatitis; I27.20 Pulmonary hypertension, unspecified; K76.0 Fatty (change of) liver, not elsewhere classified; I10 Essential (primary) hypertension; G89.4 Chronic pain syndrome; F10.10 Alcohol abuse, uncomplicated; F13.10 Sedative, hypnotic or anxiolytic abuse, uncomplicated; E11.42 Type 2 diabetes mellitus with diabetic polyneuropathy; J45.909 Unspecified asthma, uncomplicated; K21.9 Gastro-esophageal reflux disease without esophagitis; M51.36 Other intervertebral disc degeneration, lumbar region; M47.12 Other spondylosis with myelopathy, cervical region; R29.6 Repeated falls; E78.00 Pure hypercholesterolemia, unspecified; E78.5 Hyperlipidemia, unspecified; R42 Dizziness and giddiness; R47.81 Slurred speech; R94.5 Abnormal results of liver function studies; G43.909 Migraine, unspecified, not intractable, without status migrainosus; R00.0 Tachycardia, unspecified; M87.052 Idiopathic aseptic necrosis of left femur; N63.10 Unspecified lump in the right breast, unspecified quadrant; R79.1 Abnormal coagulation profile; F41.9 Anxiety disorder, unspecified; F32.9 Major depressive disorder, single episode, unspecified; F43.10 Post-traumatic stress disorder, unspecified; F94.0 Selective mutism; R44.3 Hallucinations, unspecified; Z79.01 Long term (current) use of anticoagulants; Z86.74 Personal history of sudden cardiac arrest; Z86.718 Personal history of other venous thrombosis and embolism; Z80.1 Family history of malignant neoplasm of trachea, bronchus and lung; Z82.49 Family history of ischemic heart disease and other diseases of the circulatory system; Z96.651 Presence of right artificial knee joint; Z98.1 Arthrodesis status; Z98.84 Bariatric surgery status
CPT/HCPCS: 70450; 71045; 71275; 73700; 74177; 80048; 80053; 80074; 82272; 82607; 82728; 83540; 83615; 83690; 83735; 84100; 84165; 84466; 84484; 84999; 85014; 85018; 85025; 85027; 85046; 85610; 85730; 86334; 86850; 86900; 86901; 86920; 93005; 97530 GO; 99202; 99281; 99285; A6214; C1753; C1769; C1894; G0378; G0480; G8978 GP CH; G8978 GP CM; G8979 GP CH; G8979 GP CI; G8980 GP CH; G8987 GO CH; G8987 GO CJ; G8988 CI; G8988 GO CH; G8989 GO CH; J1170; J1200; J1650; J1885; J1940; J2250; J2270; J2405; J2765; J3010; J3430; J7030; J7050; J7120; P9016; P9017

== ENCOUNTER 2017-08-07 11:13 | Emergency (ER) | payer BC, OTHER ==
[~2017-08-07] VITALS: Ht 167.6 cm; Wt 75.1 kg
[~2017-08-07 11:13] MED LIST changes: +B-1100 MG PO; +BENTYL20 MG PO; +COUMADIN1 MG PO; +COUMADIN4 MG PO; +EFFEXOR XR150 MG PO; +FOLIC ACID1 MG PO; +IMODIUM A-D2 M2 PO; +PRAVASTATIN SOD80 MG PO; +SUCRALFATE1 GM/10 ML PO; +WELLBUTRIN SR200 MG PO
[2017-08-07 11:54] LABS: BASOPHIL (%) 0.1 % (0-1); EOSINOPHIL (%) 0.1 % (0-5); HEMOGLOBIN 12.6 G/DL (11.9-15.5); IMMATURE GRANULOCYTE (%) 0.3 % (0.0-0.7); LYMPHOCYTE (%) 12.4 % (15-42); LYMPHOCYTE COUNT 1.2 K/uL (1.0-2.8); MCH 29.1 PG (29.0-34.0); MCHC 33.2 G/DL (30.0-36.0); MCV 87.8 FL (83-99); MONOCYTE (%) 7.4 % (3-12); MONOCYTE COUNT 0.7 K/uL (0-0.8); NEUTROPHIL (%) 79.7 % (45-76); NEUTROPHIL COUNT 7.9 K/uL (1.8-6.4); PLATELET COUNT 280 K/uL (156-360); RBC DIS.WIDTH-CV 13.3 % (11.8-14.6); RBC DIS.WIDTH-SD 42.9 % (39-53); RED BLOOD COUNT 4.33 M/uL (3.80-5.20); WHITE BLOOD COUNT 9.9 K/uL (4.1-10.2)
[2017-08-07 12:35] LABS: CHLORIDE 105 mEq/L (99-109); POTASSIUM 3.7 mEq/L (3.7-5.4); SODIUM 138 mEq/L (136-147)
[2017-08-07 12:37] LABS: GLUCOSE 114 mg/dL (70-99)
[2017-08-07 12:41] LABS: GFR ESTIMATE (CALCULATED) > 59 mL/min/
[2017-08-07 12:42] LABS: UREA NITROGEN (BUN) 13 mg/dL (9-23)
[2017-08-07 12:55] LABS: APPEARANCE CLEAR ((CLEAR)); BILIRUBIN NEGATIVE; BLOOD NEGATIVE; COLOR AMBER ((YELLOW)); GLUCOSE (STRIP) NEGATIVE; KETONES NEGATIVE; LEUKOCYTES NEGATIVE; NITRITE NEGATIVE; PROTEIN (STRIP) 100; SPECIFIC GRAVITY 1.028 (1.000-1.030)
[2017-08-07 13:22] LABS: BACTERIA 1+ /HPF; EPITHELIAL CELLS 1+ /HPF; MUCUS 2+ /LPF; RED BLOOD CELLS NONE SEEN /HPF (0-5); WHITE BLOOD CELLS 0-5 /HPF (0-5)
[2017-08-07 13:47] LABS: AMPHETAMINE NEGATIVE (500 ng/mL); BARBITURATES NEGATIVE (200 ng/mL); BENZODIAZEPINES NEGATIVE (150 ng/mL); BUPRENORPHINE NEGATIVE (10 ng/mL); COCAINE NEGATIVE (150 ng/mL); METHADONE NEGATIVE (200 ng/mL); METHAMPHETAMINE NEGATIVE (500 ng/mL); OPIATES (MORPHINE) PRESUMPTIVE POSITIVE (100 ng/mL); OXYCODONE PRESUMPTIVE POSITIVE (100 ng/mL); PHENCYCLIDINE NEGATIVE (25 ng/mL); PROPOXYPHENE NEGATIVE (300 ng/mL); THC CANNABINOIDS PRESUMPTIVE POSITIVE (50 ng/mL); TRICYCLIC ANTIDEPRESSANTS NEGATIVE (300 ng/mL)
[2017-08-07 14:57] VITALS: BP 128/86
== END 2017-08-07 14:59 | disposition home or self-care (01) ==
LOC: EME 11:13
PROVIDERS: Emergency Medicine
DX: R51 Headache (principal); R11.0 Nausea; W06.XXXA Fall from bed, initial encounter; F11.10 Opioid abuse, uncomplicated; F12.10 Cannabis abuse, uncomplicated; I11.0 Hypertensive heart disease with heart failure; I50.9 Heart failure, unspecified; E78.5 Hyperlipidemia, unspecified; J45.909 Unspecified asthma, uncomplicated; Z86.718 Personal history of other venous thrombosis and embolism; Z90.49 Acquired absence of other specified parts of digestive tract; Z90.710 Acquired absence of both cervix and uterus; Z98.1 Arthrodesis status
CPT/HCPCS: 70450; 71045; 80048; 81003; 84999; 85025; 99281; 99285